=== PATIENT | female | born 1990 | race Caucasian/White ===

== ENCOUNTER 2024-08-12 17:39 | Inpatient (IN) ==
[2024-08-12] MEDS ORDERED: LIDOCAINE 1% LOCAL 20 ML VIAL INFIL PRN (22:20)
[2024-08-12] MEDS ORDERED: CALCIUM CARBONATE 500 MG CHEWABLE TAB PO PRN (22:20)
[2024-08-12] MEDS ORDERED: OXYTOCIN 30 UNITS/NSS 30 UNITS/500 ML BAG IV PRN (22:20)
--- NOTE | 2024-08-12 22:32 | History & Physical Report ---
Date of Service August 12, 2024 Assessment & Plan (1) Pre-eclampsia: (2) Dichorionic diamniotic twin gestation: (3) with 36 completed weeks gestation: Plan Plan for iol for planned vaginal delivery. Again went over in great detail how this would work--espinoza for ripening, once espinoza out epidural and arom, when ready to push to double set up or. Discussed potential of x 2 or of A and c/s delivery of B which is a potentially more of a risk given baby B is the bigger baby. If stat, FOB would not be allowed in the room. Discussed that we would not turn the baby and if flipped breech would be c/s. Discussed many potential senarios. Discussed gbs unknown as just done yesterday,so will treat now. Fetus category one x 2. Discussed that we are premature and that the babies will likely do well here (2 girls) but that there is a potential of need for transfer to NICU. If being not acceptible, would recommend delivery at tertiary care center. think the potential for that is small and we can care for alot there. They are agreeable to proceeding with NEMESIO. Espinoza placed without difficulty. Labs are all normal and she has no s/s of pet. Pressures have improved after rest and finished with discussion. Will continue to watch closely. Admission and Anticipated Discharge Date Admission Date: August 12, 2024 History of Present Illness Chief Complaint: iol. twins, pet Primary Care Provider: NO PCP Patient is a 34yof with di/di twins, discovered. Presents today for IOL secondary to twins with preeclampsia. We have been following her very closely since developing pet without severe features in early July. she has +3-4 proteinuria for several weeks and significant nonpitting edema to the mid abdomen. Testing for the twins has been very reassuring. Twice weekly lab testing has been wnl. She has not had any severe features. Pressures have mainly been in the 140-150s/80-90. Has not had severe range blood pressures Dr. Patrick discussed the case with M today and they recommend that we not wait until 37 weeks but delivery her now. Patient is very anxious about the whole process. INtial blood pressure is 166/100 but I suspect an anxiety component. Last us 08/11--Baby A is the smaller baby with AC 17/efw 30, baby B is larger baby with AC 50, EFW 69. both are cephalic yesterday. cervix was not favorable at my exam yesterday. Plan is to admit for espinoza/pitocin this evening for eventual daytime delivery of the twins. and Delivery Plans All Twins--> Di/Di twin *Baby ASA daily start 12-28wks until delivery *Anatomy scan @20wks *Serial growth US/S starting @24wks *Wkly NST's @32wks, twice wkly @36wks(nml growth) *Twice wkly NST's @32wks, ICSI or abnml growth *MD visits Q2wks @24wks & Qwk @32wks Preeclampsia, Gest HTN *Weekly BP chk's with Doc *Weekly CBC, LFTs *Growth US Q4wks *If IUGR: RAMIRO w/UAD's weekly *Deliver 37-38wks *(If Gestational HTN<28wks bring to OB) *Twice weekly NST's @Dx Baby B marginal cord insertion Increased Risk of SMA Carrier *FOB tested NEGATIVE OB Labs: Blood Type O Positive 02/11/24 Antibody Screen NEGATIVE 02/11/24 Hgb 10.3 g/dl (12.0-16.0) L 08/07/24 Hct 31.9 % (37.0-47.0) L 08/07/24 MCV 86.9 fL (80.0-100.0) 08/07/24 Plt Count 207 K/uL (130-400) 08/07/24 Rubella IgG Antibody Immune (Immune) 02/11/24 RPR Nonreactive (Nonreactive) 02/11/24 Treponema pallidum Ab Negative (Negative) 06/18/24 Hep Bs Antigen NON-REACTIVE (NON-REACTIVE) 02/11/24 Hepatitis C Ab (EIA) NON-REACTIVE (NON-REACTIVE) 02/11/24 HIV (1&2) Ag & Ab Conf NON-REACTIVE (NON-REACTIVE) 02/11/24 Glucose 1 Hr 50 gm 110 mg/dl (70-130) 06/18/24 OB Optional Labs: No Data to Display Labs Reviewed: low risk panorama x 2--akh carrier sma fob neg carrier sma declines afp--akh GBS pending--akh Allergies Allergy/AdvReac Type Severity Reaction Status Date / Time No Known Allergies Allergy Verified 08/11/24 11:28 Home Medications Medication Instructions Recorded Confirmed Type vits no.130-ferrous fum 1 tab PO DAILY 05/25/24 08/11/24 History 27 mg iron-folic acid 800 mcg tablet ( Vitamin) Patient History Medical History Patient denies significant medical history Surgical History Status post surgery Status post colposcopy Family History Father Diabetes Hypertension Hypercholesteremia Denies family history of Ovarian cancer Breast cancer Colorectal cancer Social History Smoking Status: Never smoker Second Hand Exposure: No; Do You Dip or Chew Tobacco: No; Hx Alcohol Use: No Hx Substance Use: No Preferred Language: Kazakh Manager Implementation Required: No Beliefs That Will Affect Care: None marital status: marital status details: Vesta (39) [phone] Current Living Situation: Spouse Current Living Situation Comment: lives with spouse, step child, no pets current occupational status: unemployed Other Information That Helps Us Care for You: No Feels Safe at Home: Yes Assistive Devices: None OB History g1--present INTERNAL RECRUITER History hx of abnl pap Physical Exam Constitutional: WD/WN, vitals as above Cardiovascular: Extremities: + pedal edema and + edema (+4, nonpitting); no calf tenderness Gastrointestinal (Abdomen): gravid, nonpitting edema of the abd wall to the umbilicus Neurologic: patellar DTR's 2+ bilat, sensation intact Psychiatric: A+Ox3, euthymic affect Genitourinary: cx--ft/80/-2 bedside us--baby A on the right, cephalic baby B on the left, cephalic toco--reina efm--black--140s with mod variability, accels to 160s, no decels blue--130s wtih mod variability, accels present, no decels Verbal consent for placement of espinoza bulb. cx visualized with speculum, espinoza threaded through, filled 30cc water, speculum removed. tolerated well Coding Level of Care Code None Diagnoses Pre-eclampsia O14.90 Dichorionic diamniotic twin in third trimester O30.043 Trimester: third trimester with 36 completed weeks gestation Z3A.36 (2) Dichorionic diamniotic twin gestation Trimester: third trimester Qualified Code(s): O30.043 - Twin , dichorionic/diamniotic, third trimester
[2024-08-12 22:54] LABS: Hematocrit (blood only) 32.1 % (37.0-47.0); Hemoglobin 10.5 g/dl (12.0-16.0); Mean Corpuscular Hemoglobin 28.3 pg (25.0-34.0); Mean Corpuscular Hgb Conc 32.7 g/dL (32.0-36.0); Mean Corpuscular Volume 86.5 fL (80.0-100.0); Mean Platelet Volume 12.1 fL (9.4-12.4); Platelet Count 224 K/uL (130-400); RDW Coefficient of Variation 14.8 % (11.5-14.5); RDW Standard Deviation 46.7 fL (36.4-46.3); Red Blood Count 3.71 M/uL (4.20-5.40); White Blood Count 6.12 K/ul (4.8-10.8)
[2024-08-12 23:16] LABS: Albumin Globulin Ratio 0.8 (0.9-2); Albumin Level 2.4 gm/dl (3.4-5.0); BUN Creatinine Ratio 15.4 (10-20); Bilirubin,Total 0.6 mg/dl (0.2-1.0); Calcium 8.2 mg/dl (8.6-10.3); Creatinine Clr Calc Pharmacy 93.9 ml/min; Globulin 3.2 gm/dl (2.5-4.0); Potassium 4.2 mmol/L (3.5-5.1); Total Protein 5.6 gm/dl (6.0-8.3)
[2024-08-12] MEDS: PENICILLIN GK 6 MU in SODIUM CHLORIDE 0.9% 250 ML IV STA (23:17)
[2024-08-12] MEDS: OXYTOCIN 30 UNITS/NSS 30 UNITS/500 ML BAG IV PRN (23:44)
[2024-08-12] MEDS: SODIUM CHLORIDE 0.9% 1,000 ML IV SCH (23:45)
[2024-08-13] MEDS: BUTORPHANOL TARTRATE 2 MG/ML VIAL IV ONE (00:38)
--- NOTE | 2024-08-13 01:36 | Communication Note ---
Date of Service: August 13, 2024 Patient requested iv meds for pain and received 1mg of stadol. She is resting/sleeping. babies show stadol effect. BPs improved mainly 140-150s/80-90. Most are not in the severe range. Will continue to monitor closely.
[2024-08-13] MEDS: PENICILLIN GK 3 MU in DEXTROSE 5% 100 ML IV PRN (03:18)
[2024-08-13] MEDS: BUTORPHANOL TARTRATE 2 MG/ML VIAL IV STA (05:14)
--- NOTE | 2024-08-13 08:00 | Labor Progress Brief Note ---
Date of Service August 13, 2024 Subjective Patient is feeling well. WAs able to sleep overnight. Lester fell out a little after 3am and was 4cm at that time. Assessment & Plan (1) with 36 completed weeks gestation: (2) Pre-eclampsia: Plan stable from pet standpoint, pressures have been good overnight when resting/sleeping. fetus category one x 2. Plan to get epidural now and then arom. Admission and Anticipated Discharge Date Admission Date: August 12, 2024 Physical Exam Physical Exam: cx--deferred toco--q2-4min, pit at 6 efm--a--125, mod variability, accels present, no decels b--120 wtih mod variability, accels present, no decels Results & Data Vital Signs (Past 12 Hours) Vital Signs Temp Pulse Resp BP 08/13/24 07:15 83 138/84 08/13/24 06:44 81 131/82 08/13/24 06:13 83 139/83 08/13/24 05:44 83 154/87 H 08/13/24 05:13 75 165/96 H 08/13/24 04:14 75 163/97 H 08/13/24 03:43 78 163/95 H 08/13/24 03:13 75 153/95 H 08/13/24 02:44 76 162/94 H 08/13/24 02:30 18 08/13/24 02:30 36.6 C 18 08/13/24 02:14 80 133/89 08/13/24 01:43 82 136/82 08/13/24 01:13 86 159/84 H 08/13/24 00:43 88 167/99 H 08/13/24 00:13 81 142/78 H 08/12/24 23:42 77 159/99 H 08/12/24 23:28 81 165/96 H 08/12/24 23:12 81 161/94 H 08/12/24 23:00 86 171/102 H 08/12/24 22:40 82 166/100 H 08/12/24 22:28 37.3 C 18 Coding Level of Care Code None Diagnoses with 36 completed weeks gestation Z3A.36 Pre-eclampsia O14.90
[2024-08-13] MEDS ORDERED: NALBUPHINE HCL INJ 10 MG/ML AMP IV PRN ×2 (08:01→23:37)
[2024-08-13] MEDS ORDERED: ROPIVACAINE 0.5% PF 5 MG/ML 20 ML VIAL EPI PRN (08:01)
[2024-08-13] MEDS ORDERED: NALOXONE HCL 1 MG in SODIUM CHLORIDE 0.9% 1,000 ML IV PRN ×2 (08:01→23:37)
[2024-08-13] MEDS ORDERED: diphenhydrAMINE 50 MG/ML VIAL IV PRN ×2 (08:01→23:37)
[2024-08-13] MEDS ORDERED: ePHEDrine sulfate 50 MG/ML AMP IV PRN ×2 (08:01→23:37)
[2024-08-13] MEDS ORDERED: NALOXONE HCL 0.4 MG/1 ML VIAL/CARP IV PRN ×2 (08:01→23:37)
[2024-08-13] MEDS ORDERED: LIDOCAINE 2% MPF LOCAL 5 ML VIAL EPI PRN (08:01)
[2024-08-13] MEDS ORDERED: fentaNYL citrate PF 100 MCG/2 ML VIAL EPI PRN (08:01)
--- NOTE | 2024-08-13 08:05 | Anesthesiology Consultation ---
Date of Service August 13, 2024 Assessment & Plan Chart Review Chart Review: Patient NOT seen in Pre Admission Testing and Acceptable Risk for Labor Epidural Consults Requested none ASA ASA2 Proposed Anesthesia Anesthesia Type: Labor Epidural Risk / Benefits Reviewed With: PT / POA / Parent / Guardian, Accepts Plan and Informed Consent Obtained History Height/Weight Height: 5 ft 8 in Weight: 99.337 kg Allergies Allergy/AdvReac Type Severity Reaction Status Date / Time No Known Allergies Allergy Verified 08/11/24 11:28 Medications Home Medications Medication Instructions Recorded Confirmed Last Taken vits no.130-ferrous fum 1 tab PO DAILY 05/25/24 08/13/24 08/12/24 09:00 27 mg iron-folic acid 800 mcg tablet ( Vitamin) Active Medications Generic Name Dose Route Start Last Admin Trade Name Freq PRN Reason Stop Dose Admin Penicillin G Potassium 3 mu/ 106 mls @ 100 mls/hr 08/13/24 01:20 08/13/24 07:23 Dextrose IV 08/23/24 01:19 100 mls/hr Q4H PRN Administration GBS(+) Until Delivery Oxytocin 30 units in 500 mls @ 6 mls/hr 08/12/24 22:23 08/13/24 07:01 Pitocin 30 Units/Nss IV 08/14/24 22:22 0.36 units/hr .Q24H PRN 6 mls/hr Labor Induction/Augmentation Titration Protocol 0.36 UNITS/HR Sodium Chloride 1,000 mls @ 50 mls/hr 08/12/24 23:45 08/13/24 07:39 Nss IV 08/13/24 23:44 999 mls/hr .Q20H KIT Infusion NPO Date Last Intake of Fluids: 08/13/24 Time Last Intake of Fluids: 07:15 Date Last Intake of Solids: 08/12/24 Time Last Intake of Solids: 21:30 Past Medical History Medical History Patient denies significant medical history Exercise / Class Metabolic Activity 1 > 8 Run/Swim/Ski/Tennis Past Family History Family History Father Diabetes Hypertension Hypercholesteremia Denies family history of Ovarian cancer Breast cancer Colorectal cancer Past Surgical History Surgical History Status post surgery Status post colposcopy Past Anesthesia History No Hx of Anesthesia Complications and No Family Hx of Anesthesia Complications History of PONV History of PONV and Hx of Motion Sickness Social History Smoking Status: Never smoker Do You Dip or Chew Tobacco: No Hx Alcohol Use: No Hx Substance Use: No Review of Systems ROS Unobtainable: All systems reviewed & are unremarkable except as noted in HPI & below Physical Exam Vital Signs Last Vital Signs Temp 36.6 C 08/13/24 02:30 Pulse 83 08/13/24 07:15 Resp 18 08/13/24 02:30 BP 138/84 08/13/24 07:15 ENMT Mouth: no TMJ abnormality Thyromental Distance: > or= 3.5 Finger Breadths Mallampati Class: II Neck normal visual inspection and trachea midline; neck extension not limited Respiratory normal respiratory effort Auscultation: lungs clear to auscultation bilaterally Cardiovascular Rate/Rhythm: regular rate and regular rhythm Heart Sounds: no murmur Musculoskeletal Spine: normal cervical ROM Extremities: full ROM of extremities Neurologic moves all extremities Psychiatric Orientation: alert and oriented x 3 Testing Laboratory Results 08/12/24 22:32 08/12/24 22:32 Blood Type O Positive 08/12/24 22:32 Antibody Screen NEGATIVE 08/12/24 22:32
[2024-08-13] MEDS: fentANYL 2 MCG/ML BUPIVacaine 0.125%-NSS 100ML BAG ONE (08:24)
[2024-08-13] MEDS: fentaNYL citrate PF 100 MCG/2 ML VIAL ONE (08:29)
[2024-08-13] MEDS: SODIUM CHLORIDE 0.9% PF INJ 10 ML VIAL ONE (08:29)
[2024-08-13] MEDS: LIDOCAINE 2%/EPINEPHRINE 1:200,000 20 ML PF ONE (08:29)
[2024-08-13] MEDS: BUPIVACAINE 0.25% PF 30 ML VIAL ONE (08:29)
[2024-08-13] MEDS: BUPIVACAINE 0.25% PF 30 ML VIAL EPI STA (09:04)
[2024-08-13] MEDS: LIDOCAINE 2%/EPINEPHRINE 1:200,000 20 ML PF EPI STA (09:04)
[2024-08-13] MEDS: SODIUM CHLORIDE 0.9% PF INJ 10 ML VIAL EPI STA (09:04)
[2024-08-13] MEDS: fentaNYL citrate PF 100 MCG/2 ML VIAL EPI STA (09:04)
--- NOTE | 2024-08-13 10:45 | Labor Progress Brief Note ---
Date of Service August 13, 2024 Subjective FHT Cat 1 x both babies [place] q 2-4 Comfortable with epidural. AROM clear fluid. FSE to Baby A Assessment & Plan Admission and Anticipated Discharge Date Admission Date: August 12, 2024 Results & Data Vital Signs (Past 12 Hours) Vital Signs Temp Pulse Resp BP Pulse Ox 08/13/24 10:38 75 98 08/13/24 10:33 74 98 08/13/24 10:29 73 143/85 H 08/13/24 10:28 77 99 08/13/24 10:23 76 99 08/13/24 10:18 79 99 08/13/24 10:13 99 08/13/24 10:13 71 08/13/24 10:13 83 128/85 08/13/24 10:08 99 08/13/24 10:08 77 08/13/24 10:08 77 121/81 08/13/24 10:03 88 126/84 99 08/13/24 10:00 16 08/13/24 10:00 16 08/13/24 09:59 96 H 126/87 08/13/24 09:58 97 H 99 08/13/24 09:54 89 133/80 08/13/24 09:53 36.5 C 89 98 08/13/24 09:48 97 08/13/24 09:48 90 08/13/24 09:48 84 135/80 08/13/24 09:45 17 08/13/24 09:45 17 08/13/24 09:43 99 08/13/24 09:43 79 08/13/24 09:43 73 125/73 08/13/24 09:39 83 129/80 08/13/24 09:38 82 98 08/13/24 09:33 85 126/77 97 08/13/24 09:30 16 08/13/24 09:30 16 08/13/24 09:28 82 128/73 97 08/13/24 09:23 97 08/13/24 09:23 81 08/13/24 09:23 84 111/75 08/13/24 09:19 88 130/79 08/13/24 09:18 86 98 08/13/24 09:15 20 08/13/24 09:13 81 114/75 97 08/13/24 09:08 81 132/70 96 08/13/24 09:03 96 08/13/24 09:03 89 08/13/24 09:03 90 112/68 08/13/24 09:00 18 08/13/24 08:58 90 117/71 96 08/13/24 08:54 96 H 123/67 08/13/24 08:53 97 H 96 08/13/24 08:49 93 H 123/70 08/13/24 08:48 96 H 97 08/13/24 08:45 20 08/13/24 08:43 96 08/13/24 08:43 92 H 08/13/24 08:43 96 H 128/71 08/13/24 08:39 93 H 133/73 08/13/24 08:38 95 H 98 08/13/24 08:33 99 H 98 08/13/24 08:31 102 H 130/76 08/13/24 08:30 18 08/13/24 08:29 100 H 144/79 H 08/13/24 08:28 99 H 97 08/13/24 08:27 99 H 142/85 H 08/13/24 08:25 96 H 158/85 H 08/13/24 08:23 92 H 168/93 H 99 08/13/24 08:21 98 H 159/75 H 08/13/24 08:18 88 99 08/13/24 08:13 81 182/99 H 08/13/24 07:15 83 138/84 08/13/24 06:44 81 131/82 08/13/24 06:13 83 139/83 08/13/24 05:44 83 154/87 H 08/13/24 05:13 75 165/96 H 08/13/24 04:14 75 163/97 H 08/13/24 03:43 78 163/95 H 08/13/24 03:13 75 153/95 H 08/13/24 02:44 76 162/94 H 08/13/24 02:30 18 08/13/24 02:30 36.6 C 18 08/13/24 02:14 80 133/89 08/13/24 01:43 82 136/82 08/13/24 01:13 86 159/84 H 08/13/24 00:43 88 167/99 H 08/13/24 00:13 81 142/78 H 08/12/24 23:42 77 159/99 H 08/12/24 23:28 81 165/96 H 08/12/24 23:12 81 161/94 H 08/12/24 23:00 86 171/102 H Coding Level of Care Code None
[2024-08-13] MEDS: fentANYL 2 MCG/ML BUPIVacaine 0.125%-NSS 100ML BAG EPI PRN (16:01)
[2024-08-13] MEDS: BUPIVACAINE 0.25% PF 30 ML VIAL EPI PRN (16:31)
[2024-08-13] MEDS: SODIUM CHLORIDE 0.9% PF INJ 10 ML VIAL EPI PRN (16:31)
--- NOTE | 2024-08-13 16:34 | Anesthesia Procedure Note ---
Date of Service August 13, 2024 Anesthesia Epidural Re-Dose Vital Signs Temp Pulse Resp BP Pulse Ox 36.9 C 91 H 16 157/89 H 100 08/13/24 15:06 08/13/24 16:29 08/13/24 14:30 08/13/24 16:29 08/13/24 16:28 Notes Pain Intensity: 8 Dilatation (cm): 5.5 Effacement (%): 90 Called by nursing to evaluate epidural as the patient is having increased pain. The epidural was re-dosed with the following medications (all medications via epidural route) after negative aspiration of the epidural catheter for CSF/HEME. 0.2 Ropivacaine ml via epidural After Epidural Re-Dose Mental Status: alert / awake / arousable and participated in evaluation Pain: improving with treatment Airway Patency, RR, SpO2: stable & adequate BP & HR: stable & adequate Additional Notes: asked to evaluate patient for pain. Patient states she can feel everything and has pain in sacral region. Patient appeared comfoertable and talked fluidly through peak of mutiple contractions while I was in room. T10 level bilaterally to ice. Redosed epidural with 8 cc of 0.125% bupi and discussed expectations for pain management during labor.
[2024-08-13] MEDS: ePHEDrine sulfate 50 MG/ML AMP ONE (19:02)
[2024-08-13] MEDS ORDERED: LIDOCAINE 2%/EPINEPHRINE 1:200,000 20 ML PF ONE (22:32)
--- NOTE | 2024-08-13 22:32 | History & Physical Bridge Note ---
Date of Service August 13, 2024 History & Physical Bridge Note I have examined the patient, reviewed the History & Physical and in the interval since the performance of the History & Physical I have noted the following changes of clinical significance: no changes noted
--- NOTE | 2024-08-13 22:32 | Labor Progress Brief Note ---
Date of Service August 13, 2024 Subjective Cervix exam at 930p was 6cm, discussed concerns about failure to dilate with patient - as she was 4cm at 5a today, and no mold insert changer 3 hours. She requested recheck in 1 hour in hopes for cervical change. Recheck just now was same cervical exam, discussed 4+ hours of ctx Q 1-2 min, no cervical change. Recommend proceed to delivery by section. She is agreeable. We have already discussed consent for . Assessment & Plan Admission and Anticipated Discharge Date Admission Date: August 12, 2024 Results & Data Vital Signs (Past 12 Hours) Vital Signs Temp Pulse Resp BP Pulse Ox 08/13/24 22:28 100 H 100 08/13/24 22:23 100 H 100 08/13/24 22:18 99 H 100 08/13/24 22:14 93 H 170/95 H 08/13/24 22:13 96 H 100 08/13/24 22:08 104 H 100 08/13/24 22:03 118 H 96 08/13/24 21:59 93 H 153/86 H 08/13/24 21:58 89 98 08/13/24 21:53 93 H 97 08/13/24 21:48 93 H 99 08/13/24 21:44 100 H 160/92 H 08/13/24 21:43 100 H 99 08/13/24 21:38 100 H 100 08/13/24 21:33 98 H 100 08/13/24 21:30 106 H 156/116 H 08/13/24 21:28 104 H 99 08/13/24 21:23 91 H 99 08/13/24 21:18 102 H 98 08/13/24 21:13 100 08/13/24 21:13 103 H 08/13/24 21:13 91 H 141/85 H 08/13/24 21:08 94 H 100 08/13/24 21:03 97 H 100 08/13/24 20:58 93 H 156/99 H 100 08/13/24 20:53 96 H 100 08/13/24 20:48 99 H 100 08/13/24 20:44 88 146/88 H 08/13/24 20:43 99 H 100 08/13/24 20:38 97 H 100 08/13/24 20:33 97 H 99 08/13/24 20:29 96 H 152/86 H 08/13/24 20:28 97 H 100 08/13/24 20:23 99 H 99 08/13/24 20:18 94 H 98 08/13/24 20:13 96 H 08/13/24 20:13 98 H 174/101 H 97 08/13/24 20:08 88 97 08/13/24 20:03 87 97 08/13/24 19:59 92 H 172/102 H 08/13/24 19:58 88 97 08/13/24 19:53 88 97 08/13/24 19:48 87 97 08/13/24 19:45 90 158/102 H 08/13/24 19:43 87 98 08/13/24 19:38 90 98 08/13/24 19:33 86 98 08/13/24 19:28 98 08/13/24 19:28 85 08/13/24 19:28 90 167/96 H 08/13/24 19:23 86 98 08/13/24 19:18 85 99 08/13/24 19:15 85 165/98 H 08/13/24 19:13 89 99 08/13/24 19:10 37.0 C 18 08/13/24 19:10 18 08/13/24 19:08 91 H 99 08/13/24 19:03 88 100 08/13/24 19:00 20 08/13/24 19:00 20 08/13/24 18:59 93 H 162/98 H 08/13/24 18:58 93 H 100 08/13/24 18:53 94 H 100 08/13/24 18:48 93 H 99 08/13/24 18:46 36.7 C 08/13/24 18:44 90 154/94 H 08/13/24 18:43 92 H 100 08/13/24 18:38 95 H 99 08/13/24 18:33 93 H 99 08/13/24 18:30 20 08/13/24 18:30 20 08/13/24 18:28 100 08/13/24 18:28 90 08/13/24 18:28 88 152/99 H 08/13/24 18:23 95 H 99 08/13/24 18:18 93 H 98 08/13/24 18:13 98 H 99 08/13/24 18:08 92 H 100 08/13/24 18:04 16 08/13/24 18:04 16 08/13/24 18:03 97 H 99 08/13/24 17:58 86 165/89 H 98 08/13/24 17:53 93 H 99 08/13/24 17:48 91 H 99 08/13/24 17:44 87 155/86 H 08/13/24 17:43 85 98 08/13/24 17:38 91 H 99 08/13/24 17:33 93 H 99 08/13/24 17:28 90 08/13/24 17:28 90 154/86 H 100 08/13/24 17:23 96 H 100 08/13/24 17:18 85 100 08/13/24 17:14 88 142/89 H 08/13/24 17:13 88 99 08/13/24 17:08 100 H 100 08/13/24 17:06 37.0 C 08/13/24 17:05 16 08/13/24 17:05 16 08/13/24 17:03 99 H 99 08/13/24 17:00 89 148/90 H 08/13/24 16:58 92 H 99 08/13/24 16:53 97 H 99 08/13/24 16:48 86 99 08/13/24 16:43 98 08/13/24 16:43 84 08/13/24 16:43 85 148/92 H 08/13/24 16:38 83 98 08/13/24 16:33 92 H 99 08/13/24 16:32 90 149/93 H 08/13/24 16:30 20 08/13/24 16:29 91 H 157/89 H 08/13/24 16:28 90 100 08/13/24 16:23 96 H 100 08/13/24 16:18 96 H 100 08/13/24 16:13 100 08/13/24 16:13 92 H 08/13/24 16:13 90 133/84 08/13/24 16:08 89 99 08/13/24 16:03 94 H 99 08/13/24 16:00 16 08/13/24 15:59 89 136/83 08/13/24 15:58 92 H 98 08/13/24 15:53 95 H 100 08/13/24 15:48 89 100 12/05/24 15:43 92 H 126/77 100 08/13/24 15:38 95 H 100 08/13/24 15:33 96 H 100 08/13/24 15:30 20 08/13/24 15:30 88 144/83 H 08/13/24 15:28 93 H 99 08/13/24 15:23 91 H 100 08/13/24 15:18 90 100 08/13/24 15:14 90 141/92 H 08/13/24 15:13 91 H 100 08/13/24 15:08 90 99 08/13/24 15:06 36.9 C 08/13/24 15:03 89 99 08/13/24 15:00 16 08/13/24 15:00 92 H 143/92 H 08/13/24 14:58 92 H 100 08/13/24 14:53 88 100 08/13/24 14:48 90 100 08/13/24 14:44 90 150/90 H 08/13/24 14:43 89 100 08/13/24 14:38 90 100 08/13/24 14:33 92 H 99 08/13/24 14:30 86 16 159/92 H 08/13/24 14:28 86 143/93 H 98 08/13/24 14:23 81 99 08/13/24 14:18 83 99 08/13/24 14:14 83 145/90 H 08/13/24 14:13 82 99 08/13/24 14:08 83 99 08/13/24 14:03 88 98 08/13/24 14:00 83 160/89 H 08/13/24 13:58 86 98 08/13/24 13:53 78 99 08/13/24 13:48 83 98 08/13/24 13:44 86 144/89 H 08/13/24 13:43 86 98 08/13/24 13:38 81 99 08/13/24 13:33 82 99 08/13/24 13:30 16 08/13/24 13:28 80 163/98 H 99 08/13/24 13:23 77 100 08/13/24 13:18 75 100 08/13/24 13:14 86 155/91 H 08/13/24 13:13 80 100 08/13/24 13:08 80 99 08/13/24 13:03 86 98 08/13/24 13:01 37.1 C 08/13/24 13:00 20 08/13/24 13:00 78 165/90 H 08/13/24 12:58 74 99 08/13/24 12:53 74 99 08/13/24 12:48 74 99 08/13/24 12:44 77 164/94 H 08/13/24 12:43 79 99 08/13/24 12:38 82 100 08/13/24 12:33 81 100 08/13/24 12:30 16 08/13/24 12:29 85 140/95 08/13/24 12:28 88 100 08/13/24 12:23 75 100 08/13/24 12:18 82 99 08/13/24 12:15 81 152/84 H 08/13/24 12:13 72 99 08/13/24 12:08 77 99 08/13/24 12:03 71 99 08/13/24 12:00 18 08/13/24 12:00 74 163/93 H 08/13/24 11:58 79 99 08/13/24 11:53 83 98 08/13/24 11:48 85 100 08/13/24 11:44 70 153/94 H 08/13/24 11:43 73 98 08/13/24 11:38 69 98 08/13/24 11:33 70 98 08/13/24 11:30 16 08/13/24 11:30 16 08/13/24 11:28 69 139/93 98 08/13/24 11:23 71 98 08/13/24 11:18 72 98 08/13/24 11:14 76 139/87 08/13/24 11:13 78 99 08/13/24 11:08 71 98 08/13/24 11:03 78 17 99 08/13/24 10:59 77 142/83 H 08/13/24 10:58 76 98 08/13/24 10:53 70 98 08/13/24 10:48 74 98 08/13/24 10:43 71 146/85 H 98 08/13/24 10:38 75 98 08/13/24 10:33 74 98 Coding Level of Care Code None
[2024-08-13] MEDS ORDERED: ONDANSETRON INJ 2 MG/ML 2 ML VIAL ONE (22:33)
[2024-08-13] MEDS ORDERED: MoRPHine SULFATE PF 1 MG/ML 10 ML AMP/VIAL ONE (22:33)
[2024-08-13] MEDS ORDERED: PHENYLEPHRINE 100MCG/ML 5ML SYR ONE (22:33)
[2024-08-13] MEDS ORDERED: DEXAMETHASONE SOD INJ 4 MG/ML VIAL ONE (22:33)
[2024-08-13] MEDS ORDERED: OXYTOCIN 10 UNITS/ML VIAL ONE (22:35)
[2024-08-13] MEDS: ONDANSETRON INJ 2 MG/ML 2 ML VIAL IV PRN (22:40)
[2024-08-13] MEDS: CITRIC ACID/SODIUM CITRATE 15 ML UDC PO SCH (22:45)
[2024-08-13] MEDS: AZITHROMYCIN 250 MG TAB PO STA (22:46)
[2024-08-13] MEDS: ceFAZolin 3000MG 3,000 MG/72.5 ML BAG IV SCH (22:48)
[2024-08-13] MEDS ORDERED: ePHEDrine sulfate 50 MG/5 ML SYR ONE (23:09)
--- NOTE | 2024-08-13 23:09 | Communication Note ---
Date of Service: August 13, 2024 decision made to proceed to c/s for failure to progress in twin gestation with PreE. Epidural in place and working well. Fabien proceed with epidural anetheia. ASA2E
[2024-08-13] MEDS ORDERED: fentaNYL citrate PF 100 MCG/2 ML VIAL ONE (23:24)
[2024-08-13] MEDS ORDERED: diphenhydrAMINE Capsule 25 MG CAP PO PRN (23:37)
[2024-08-13] MEDS ORDERED: DROPERIDOL 5 MG/2 ML VIAL IV PRN (23:37)
[2024-08-13] MEDS ORDERED: NALOXONE HCL 0.08 MG in SYRINGE 1.8 ML IV PRN (23:37)
[2024-08-13] MEDS ORDERED: PROMETHAZINE 6.25 MG/50.25 ML BAG IV PRN (23:37)
[2024-08-13] MEDS ORDERED: ONDANSETRON INJ 2 MG/ML 2 ML VIAL IV PRN (23:37)
[2024-08-13] MEDS ORDERED: HYDROmorphone INJ 0.5 MG/0.5 ML SYR IV PRN (23:37)
--- NOTE | 2024-08-13 23:39 | Anesthesia Procedure Note ---
Date of Service August 13, 2024 Anesthesia Post Epidural Note Vital Signs Vital Signs: Temp Pulse Resp BP Pulse Ox 37.0 C 103 H 18 142/86 H 99 08/13/24 19:10 08/13/24 22:48 08/13/24 19:10 08/13/24 22:43 08/13/24 22:48 Pain Intensity Abdomen: Pain Intensity: 9 Notes Mental Status: alert / awake / arousable and participated in evaluation Nausea / Vomiting: adequately controlled Pain: adequately controlled Airway Patency, RR, SpO2: stable & adequate BP & HR: stable & adequate Hydration State: stable & adequate Neuraxial Anesthesia: was administered and sensory block is resolving Anesthetic Complications: no major complications apparent Epidural: Removed without complications and With tip intact
[2024-08-13] MEDS ORDERED: DC INTRASPINAL MORPHINE SCH (23:45)
[2024-08-13] MEDS ORDERED: NO NARCOTICS OR SEDATIVES SCH (23:45)
[2024-08-14] MEDS ORDERED: SENNA 8.6 MG TAB PO PRN (00:05)
[2024-08-14] MEDS ORDERED: BENZOCAINE 20% SPRY 85 APPLN/85 GM CAN EXT PRN (00:05)
[2024-08-14] MEDS ORDERED: HYDROCORTISONE ACETATE 25 MG SUPP PR PRN (00:05)
[2024-08-14] MEDS ORDERED: CALCIUM CARBONATE 500 MG CHEWABLE TAB PO PRN (00:05)
--- NOTE | 2024-08-14 00:05 | Operative Report ---
Post Operative Report Pre & Post Diagnosis Operation Date: 08/13/24 23:00 Pre: 36w di/di twins, preeclampsia, failure to dilate Post: same I identified the patient and participated in the time-out.: Yes Procedure Operation Date: 08/13/24 23:00 Primary Low Transverse Section Surgeon Lani Patrick DO Breakfast Hostess Maryellen Pate MD Quantitative Blood Loss (QBL) 1031 Findings Consistent with Post-Op Diagnosis Viable female neonates, Apgars Baby A 8/9, Baby B /. Weight pending, please see nursery records. Specimens placentas, cord blood, cord gas Drains espinoza, clear yellow Anesthesia Type L&D Only Epidural Exists Complications none Disposition Accompanied Patient To Recovery: Yes Disposition: L&D Indications 34yo with di di twins undergoing induction of labor for preeclampsia, dilated to 6cm and in spite of regular contractions was unable to progress further. Description of Procedure The patient was seen in her labor and delivery room, risks benefits and alternatives to surgery were reviewed. Informed consent obtained. Questions were answered. She was taken to the operating room, epidural anesthesia was re-dosed. She was then prepared and draped in the usual sterile fashion in the supine position with a leftward tilt. Timeout was confirmed. A Pfannenstiel skin incision was made with a scalpel, and carried through to the underlying layer of fascia. Fascia was nicked at midline, and this incision was extended bilaterally. The superior aspect of the fascial incision was grasped with Naomi clamps x2, elevated off the underlying rectus abdominis muscles, and dissected sharply and bluntly. In similar fashion, the inferior aspect of the fascial incision was dissected. The rectus abdominis muscles were , and the peritoneum was entered bluntly digitally. This was extended bilaterally. The bladder flap was taken down carefully using Metzenbaum scissors. Using a new scalpel, a low transverse uterine incision was created. Clear amniotic fluid noted. The Baby A was delivered from a cephalic presentation. The head delivered, followed by shoulders and body. Spontaneous cry on the field. The cord was doubly clamped and cut, and the was handed off to the waiting elementary school principal. A segment was retained for cord gases. Cord blood was obtained. Baby B amniotomy performed, clear fluid. Baby B was delivered from a cephalic presentation. The head delivered, followed by shoulders and body. Spontaneous cry on the field. The cord was doubly clamped and cut, and the infant was handed off to the waiting elementary school principal. A segment was retained for cord gases. Cord blood was obtained. The placentas were delivered spontaneously intact. The uterus was exteriorized, and cleared of all clots and debris. The hysterotomy incision was reapproximated using 0 Vicryl in a running locked stitch. A second layer of the same suture was used to imbricate the incision. Posterior uterus was evaluated and normal. The uterus was returned to the abdomen, and gutters were cleared of clots and debris. Excellent hemostasis was observed. The fascial incision was reapproximated using 0 Vicryl in a running stitch. The subcutaneous tissue was irrigated, and reapproximated using 2-0 plain gut in a running stitch. The skin was reapproximated using 4-0 Vicryl in a running s ubcuticular stitch. A Alexander dressing was applied to the incision site. The patient tolerated the procedure well, and will be taken to the recovery area in stable and good condition. I attest to the content of the Intraoperative Record and any orders documented therein. Any exceptions are noted below. OB Procedure Charges 52646
--- NOTE | 2024-08-14 00:36 | Anesthesiology Progress Note ---
Date of Service August 14, 2024 Anesthesia Post Procedure Vital Signs Vital Signs: Temp Pulse Resp BP Pulse Ox 08/14/24 00:34 107 H 100 08/14/24 00:29 106 H 142/85 H 100 08/14/24 00:24 108 H 99 08/14/24 00:20 102 H 134/77 08/14/24 00:19 102 H 96 08/14/24 00:14 96 H 99 08/14/24 00:09 104 H 139/76 99 08/14/24 00:04 105 H 98 08/13/24 23:59 110 H 123/70 99 08/13/24 22:48 103 H 99 08/13/24 22:43 92 H 142/86 H 99 08/13/24 22:38 96 H 99 08/13/24 22:33 99 H 100 08/13/24 22:29 103 H 145/92 H 08/13/24 22:28 100 H 100 08/13/24 22:23 100 H 100 08/13/24 22:18 99 H 100 08/13/24 22:14 93 H 170/95 H 08/13/24 22:13 96 H 100 08/13/24 22:08 104 H 100 08/13/24 22:03 118 H 96 08/13/24 21:59 93 H 153/86 H 08/13/24 21:58 89 98 08/13/24 21:53 93 H 97 08/13/24 21:48 93 H 99 08/13/24 21:44 100 H 160/92 H 08/13/24 21:43 100 H 99 08/13/24 21:38 100 H 100 08/13/24 21:33 98 H 100 08/13/24 21:30 106 H 156/116 H 08/13/24 21:28 104 H 99 08/13/24 21:23 91 H 99 08/13/24 21:18 102 H 98 08/13/24 21:13 100 08/13/24 21:13 103 H 08/13/24 21:13 91 H 141/85 H 08/13/24 21:08 94 H 100 08/13/24 21:03 97 H 100 08/13/24 20:58 93 H 156/99 H 100 08/13/24 20:53 96 H 100 08/13/24 20:48 99 H 100 08/13/24 20:44 88 146/88 H 08/13/24 20:43 99 H 100 08/13/24 20:38 97 H 100 08/13/24 20:33 97 H 99 08/13/24 20:29 96 H 152/86 H 08/13/24 20:28 97 H 100 08/13/24 20:23 99 H 99 08/13/24 20:18 94 H 98 08/13/24 20:13 96 H 08/13/24 20:13 98 H 174/101 H 97 08/13/24 20:08 88 97 08/13/24 20:03 87 97 08/13/24 19:59 92 H 172/102 H 08/13/24 19:58 88 97 08/13/24 19:53 88 97 08/13/24 19:48 87 97 08/13/24 19:45 90 158/102 H 08/13/24 19:43 87 98 08/13/24 19:38 90 98 08/13/24 19:33 86 98 08/13/24 19:28 98 08/13/24 19:28 85 08/13/24 19:28 90 167/96 H 08/13/24 19:23 86 98 08/13/24 19:18 85 99 08/13/24 19:15 85 165/98 H 08/13/24 19:13 89 99 08/13/24 19:10 37.0 C 18 08/13/24 19:10 18 08/13/24 19:08 91 H 99 08/13/24 19:03 88 100 08/13/24 19:00 20 08/13/24 19:00 20 08/13/24 18:59 93 H 162/98 H 08/13/24 18:58 93 H 100 08/13/24 18:53 94 H 100 08/13/24 18:48 93 H 99 08/13/24 18:46 36.7 C 08/13/24 18:44 90 154/94 H 08/13/24 18:43 92 H 100 08/13/24 18:38 95 H 99 08/13/24 18:33 93 H 99 08/13/24 18:30 20 08/13/24 18:30 20 08/13/24 18:28 100 08/13/24 18:28 90 12/05/24 18:28 88 152/99 H 08/13/24 18:23 95 H 99 08/13/24 18:18 93 H 98 08/13/24 18:13 98 H 99 08/13/24 18:08 92 H 100 08/13/24 18:04 16 08/13/24 18:04 16 08/13/24 18:03 97 H 99 08/13/24 17:58 86 165/89 H 98 08/13/24 17:53 93 H 99 08/13/24 17:48 91 H 99 08/13/24 17:44 87 155/86 H 08/13/24 17:43 85 98 08/13/24 17:38 91 H 99 08/13/24 17:33 93 H 99 08/13/24 17:28 90 08/13/24 17:28 90 154/86 H 100 08/13/24 17:23 96 H 100 08/13/24 17:18 85 100 08/13/24 17:14 88 142/89 H 08/13/24 17:13 88 99 08/13/24 17:08 100 H 100 08/13/24 17:06 37.0 C 08/13/24 17:05 16 08/13/24 17:05 16 08/13/24 17:03 99 H 99 08/13/24 17:00 89 148/90 H 08/13/24 16:58 92 H 99 08/13/24 16:53 97 H 99 08/13/24 16:48 86 99 08/13/24 16:43 98 08/13/24 16:43 84 08/13/24 16:43 85 148/92 H 08/13/24 16:38 83 98 08/13/24 16:33 92 H 99 08/13/24 16:32 90 149/93 H 08/13/24 16:30 20 08/13/24 16:29 91 H 157/89 H 08/13/24 16:28 90 100 08/13/24 16:23 96 H 100 08/13/24 16:18 96 H 100 08/13/24 16:13 100 08/13/24 16:13 92 H 08/13/24 16:13 90 133/84 08/13/24 16:08 89 99 08/13/24 16:03 94 H 99 08/13/24 16:00 16 08/13/24 15:59 89 136/83 08/13/24 15:58 92 H 98 08/13/24 15:53 95 H 100 08/13/24 15:48 89 100 08/13/24 15:43 92 H 126/77 100 08/13/24 15:38 95 H 100 08/13/24 15:33 96 H 100 08/13/24 15:30 20 08/13/24 15:30 88 144/83 H 08/13/24 15:28 93 H 99 08/13/24 15:23 91 H 100 08/13/24 15:18 90 100 08/13/24 15:14 90 141/92 H 08/13/24 15:13 91 H 100 08/13/24 15:08 90 99 08/13/24 15:06 36.9 C 08/13/24 15:03 89 99 08/13/24 15:00 16 08/13/24 15:00 92 H 143/92 H 08/13/24 14:58 92 H 100 08/13/24 14:53 88 100 08/13/24 14:48 90 100 08/13/24 14:44 90 150/90 H 08/13/24 14:43 89 100 08/13/24 14:38 90 100 08/13/24 14:33 92 H 99 08/13/24 14:30 86 16 159/92 H 08/13/24 14:28 86 143/93 H 98 08/13/24 14:23 81 99 08/13/24 14:18 83 99 08/13/24 14:14 83 145/90 H 08/13/24 14:13 82 99 08/13/24 14:08 83 99 08/13/24 14:03 88 98 08/13/24 14:00 83 160/89 H 08/13/24 13:58 86 98 08/13/24 13:53 78 99 08/13/24 13:48 83 98 08/13/24 13:44 86 144/89 H 08/13/24 13:43 86 98 08/13/24 13:38 81 99 08/13/24 13:33 82 99 08/13/24 13:30 16 08/13/24 13:28 80 163/98 H 99 12/05/24 13:23 77 100 08/13/24 13:18 75 100 08/13/24 13:14 86 155/91 H 08/13/24 13:13 80 100 08/13/24 13:08 80 99 08/13/24 13:03 86 98 08/13/24 13:01 37.1 C 08/13/24 13:00 20 08/13/24 13:00 78 165/90 H 08/13/24 12:58 74 99 08/13/24 12:53 74 99 08/13/24 12:48 74 99 08/13/24 12:44 77 164/94 H 08/13/24 12:43 79 99 08/13/24 12:38 82 100 08/13/24 12:33 81 100 08/13/24 12:30 16 08/13/24 12:29 85 140/95 08/13/24 12:28 88 100 08/13/24 12:23 75 100 08/13/24 12:18 82 99 08/13/24 12:15 81 152/84 H 08/13/24 12:13 72 99 08/13/24 12:08 77 99 08/13/24 12:03 71 99 08/13/24 12:00 18 08/13/24 12:00 74 163/93 H 08/13/24 11:58 79 99 08/13/24 11:53 83 98 08/13/24 11:48 85 100 08/13/24 11:44 70 153/94 H 08/13/24 11:43 73 98 08/13/24 11:38 69 98 08/13/24 11:33 70 98 08/13/24 11:30 16 08/13/24 11:30 16 08/13/24 11:28 69 139/93 98 08/13/24 11:23 71 98 08/13/24 11:18 72 98 08/13/24 11:14 76 139/87 08/13/24 11:13 78 99 08/13/24 11:08 71 98 08/13/24 11:03 78 17 99 08/13/24 10:59 77 142/83 H 08/13/24 10:58 76 98 08/13/24 10:53 70 98 08/13/24 10:48 74 98 08/13/24 10:43 71 146/85 H 98 08/13/24 10:38 75 98 08/13/24 10:33 74 98 08/13/24 10:29 73 143/85 H 08/13/24 10:28 77 99 08/13/24 10:23 76 99 08/13/24 10:18 79 99 08/13/24 10:13 99 08/13/24 10:13 71 08/13/24 10:13 83 128/85 08/13/24 10:08 99 08/13/24 10:08 77 08/13/24 10:08 77 121/81 08/13/24 10:03 88 126/84 99 08/13/24 10:00 16 08/13/24 10:00 16 08/13/24 09:59 96 H 126/87 08/13/24 09:58 97 H 99 08/13/24 09:54 89 133/80 08/13/24 09:53 36.5 C 89 98 08/13/24 09:48 97 08/13/24 09:48 90 08/13/24 09:48 84 135/80 08/13/24 09:45 17 08/13/24 09:45 17 08/13/24 09:43 99 08/13/24 09:43 79 08/13/24 09:43 73 125/73 08/13/24 09:39 83 129/80 08/13/24 09:38 82 98 08/13/24 09:33 85 126/77 97 08/13/24 09:30 16 08/13/24 09:30 16 08/13/24 09:28 82 128/73 97 08/13/24 09:23 97 08/13/24 09:23 81 08/13/24 09:23 84 111/75 08/13/24 09:19 88 130/79 08/13/24 09:18 86 98 08/13/24 09:15 20 08/13/24 09:13 81 114/75 97 08/13/24 09:08 81 132/70 96 08/13/24 09:03 96 08/13/24 09:03 89 08/13/24 09:03 90 112/68 08/13/24 09:00 18 08/13/24 08:58 90 117/71 96 08/13/24 08:54 96 H 123/67 08/13/24 08:53 97 H 96 08/13/24 08:49 93 H 123/70 08/13/24 08:48 96 H 97 08/13/24 08:45 20 08/13/24 08:43 96 08/13/24 08:43 92 H 08/13/24 08:43 96 H 128/71 08/13/24 08:39 93 H 133/73 08/13/24 08:38 95 H 98 08/13/24 08:33 99 H 98 08/13/24 08:31 102 H 130/76 08/13/24 08:30 18 08/13/24 08:29 100 H 144/79 H 08/13/24 08:28 99 H 97 08/13/24 08:27 99 H 142/85 H 08/13/24 08:25 96 H 158/85 H 08/13/24 08:23 92 H 168/93 H 99 08/13/24 08:21 98 H 159/75 H 08/13/24 08:18 88 99 08/13/24 08:13 81 182/99 H 08/13/24 07:15 83 138/84 08/13/24 06:44 81 131/82 08/13/24 06:13 83 139/83 08/13/24 05:44 83 154/87 H 08/13/24 05:13 75 165/96 H 08/13/24 04:14 75 163/97 H 08/13/24 03:43 78 163/95 H 08/13/24 03:13 75 153/95 H 08/13/24 02:44 76 162/94 H 08/13/24 02:30 18 08/13/24 02:30 36.6 C 18 08/13/24 02:14 80 133/89 08/13/24 01:43 82 136/82 08/13/24 01:13 86 159/84 H 08/13/24 00:43 88 167/99 H Pain Intensity Abdomen: Pain Intensity: 9 Transfer of Care Handoff Completed per policy Notes Mental Status: alert / awake / arousable Patient Amnestic to Procedure: Yes Nausea / Vomiting: adequately controlled Pain: adequately controlled Airway Patency, RR, SpO2: stable & adequate BP & HR: stable & adequate Hydration State: stable & adequate Neuraxial Anesthesia: was administered and sensory block is resolving Anesthetic Complications: no major complications apparent and Pt Satisfied with anesthetic care
[2024-08-14] MEDS: ACETAMINOPHEN 325 MG TAB PO SCH (00:37)
[2024-08-14] MEDS: KETOROLAC 30 MG/ML VIAL IV SCH (00:38)
[2024-08-14 00:51] LABS: Base Excess Cord Venous Blood -5.1 mEq/L (-7.7-1.9); Cord Venous Blood HCO3 21 mmol/L (18.4-26.8); Cord Venous Blood PCO2 43 mmHg (30.4-57.2); Cord Venous Blood PO2 23 mmHg (14.1-43.3); O2 Saturation Cord Venous Bld < 60.0 % (<68)
[2024-08-14 00:52] LABS: Base Excess Cord Arterial Bld -5.2 mEq/L (-9-1.8); CO2 Cord Arterial Blood 53 mmHg (39.1-73.5); HCO3 Cord Arterial Blood 23 mmol/L (19.7-28.5); Oxygen Sat Cord Arterial Blood < 60.0 % (<60); PO2 Cord Arterial Blood < 20 mmHg (4.1-31.7); pH Cord Arterial Blood 7.24 (7.1-7.38)
[2024-08-14 00:53] LABS: Base Excess Cord Arterial Bld -5.2 mEq/L (-9-1.8); Base Excess Cord Venous Blood -5.5 mEq/L (-7.7-1.9); CO2 Cord Arterial Blood 53 mmHg (39.1-73.5); Cord Venous Blood HCO3 21 mmol/L (18.4-26.8); Cord Venous Blood PCO2 42 mmHg (30.4-57.2); Cord Venous Blood PO2 31 mmHg (14.1-43.3); HCO3 Cord Arterial Blood 23 mmol/L (19.7-28.5); O2 Saturation Cord Venous Bld 65.8 % (<68); Oxygen Sat Cord Arterial Blood < 60.0 % (<60); PO2 Cord Arterial Blood < 20 mmHg (4.1-31.7); pH Cord Arterial Blood 7.24 (7.1-7.38)
[2024-08-14] MEDS: SODIUM CHLORIDE 0.9% 1,000 ML IV SCH ×2 (01:22→13:18)
[2024-08-14] MEDS: OXYTOCIN 20 UNITS/LR 1,002 ML IV SCH (01:38)
[2024-08-14] MEDS ORDERED: SODIUM CHLORIDE 0.9% 50 ML IV PRN ×3 (02:53→03:44)
[2024-08-14] MEDS ORDERED: SODIUM CHLORIDE 0.9% 100 ML IV PRN ×3 (02:53→03:44)
[2024-08-14] MEDS: OXYTOCIN 10 UNITS/ML 10ML VIAL IM ONE (03:33)
--- NOTE | 2024-08-14 03:35 | Obstetrical Progress Note ---
Date of Service August 14, 2024 Assessment & Plan Admission and Anticipated Discharge Date Admission Date: August 12, 2024 Subjective Called to patient's room to evaluate hemorrhage. She is awake, talking. At least 500cc clots (this is estimate - nursing staff will be weighing clots momentarily for more accurate measurement). On exam, fundus firm. Vaginal exam clots expressed, removed clots from vagina - seem to be forming in lower uterine segment. Will proceed to OR for stat exam under anesthesia, as patient is intolerant of exam and clot extraction. Will give cytotec VA, IM pitocin, and 1g TXA. Discussed with patient, verbal consent given. I called blood bank to initiate massive transfusion protocol. Results & Data Vital Signs (Past 12 Hours) Vital Signs Temp Pulse Resp BP Pulse Ox 08/14/24 02:04 98 H 98 08/14/24 02:00 36.4 C L 20 08/14/24 01:59 96 H 150/97 H 100 08/14/24 01:54 89 99 08/14/24 01:50 94 H 154/105 H 08/14/24 01:49 90 98 08/14/24 01:44 100 H 99 08/14/24 01:39 94 H 141/85 H 100 08/14/24 01:34 101 H 100 08/14/24 01:30 18 08/14/24 01:29 95 H 146/90 H 99 08/14/24 01:24 100 H 100 08/14/24 01:19 97 H 153/90 H 99 08/14/24 01:14 106 H 100 08/14/24 01:09 105 H 153/91 H 99 08/14/24 01:04 112 H 100 08/14/24 01:00 36.6 C 18 08/14/24 01:00 36.6 C 18 08/14/24 00:59 106 H 146/87 H 100 08/14/24 00:54 105 H 99 08/14/24 00:50 20 08/14/24 00:49 110 H 153/92 H 100 08/14/24 00:44 99 H 100 08/14/24 00:40 18 08/14/24 00:39 103 H 156/89 H 100 08/14/24 00:34 107 H 100 08/14/24 00:30 18 08/14/24 00:29 106 H 142/85 H 100 08/14/24 00:24 108 H 99 08/14/24 00:20 20 08/14/24 00:20 102 H 134/77 08/14/24 00:19 102 H 96 08/14/24 00:14 96 H 99 08/14/24 00:10 20 08/14/24 00:09 104 H 139/76 99 08/14/24 00:04 105 H 98 08/14/24 00:00 36.9 C 20 08/13/24 23:59 110 H 123/70 99 08/13/24 22:48 103 H 99 08/13/24 22:43 92 H 142/86 H 99 08/13/24 22:38 96 H 99 08/13/24 22:33 99 H 100 08/13/24 22:29 103 H 145/92 H 08/13/24 22:28 100 H 100 08/13/24 22:23 100 H 100 08/13/24 22:18 99 H 100 08/13/24 22:14 93 H 170/95 H 08/13/24 22:13 96 H 100 08/13/24 22:08 104 H 100 08/13/24 22:03 118 H 96 08/13/24 21:59 93 H 153/86 H 08/13/24 21:58 89 98 08/13/24 21:53 93 H 97 08/13/24 21:48 93 H 99 08/13/24 21:44 100 H 160/92 H 08/13/24 21:43 100 H 99 08/13/24 21:38 100 H 100 08/13/24 21:33 98 H 100 08/13/24 21:30 106 H 156/116 H 08/13/24 21:28 104 H 99 08/13/24 21:23 91 H 99 08/13/24 21:18 102 H 98 08/13/24 21:13 100 08/13/24 21:13 103 H 08/13/24 21:13 91 H 141/85 H 08/13/24 21:08 94 H 100 08/13/24 21:03 97 H 100 08/13/24 20:58 93 H 156/99 H 100 08/13/24 20:53 96 H 100 08/13/24 20:48 99 H 100 08/13/24 20:44 88 146/88 H 08/13/24 20:43 99 H 100 08/13/24 20:38 97 H 100 08/13/24 20:33 97 H 99 08/13/24 20:29 96 H 152/86 H 08/13/24 20:28 97 H 100 08/13/24 20:23 99 H 99 08/13/24 20:18 94 H 98 08/13/24 20:13 96 H 08/13/24 20:13 98 H 174/101 H 97 08/13/24 20:08 88 97 08/13/24 20:03 87 97 08/13/24 19:59 92 H 172/102 H 08/13/24 19:58 88 97 08/13/24 19:53 88 97 08/13/24 19:48 87 97 08/13/24 19:45 90 158/102 H 08/13/24 19:43 87 98 08/13/24 19:38 90 98 08/13/24 19:33 86 98 08/13/24 19:28 98 08/13/24 19:28 85 08/13/24 19:28 90 167/96 H 08/13/24 19:23 86 98 08/13/24 19:18 85 99 08/13/24 19:15 85 165/98 H 08/13/24 19:13 89 99 08/13/24 19:10 37.0 C 18 08/13/24 19:10 18 08/13/24 19:08 91 H 99 08/13/24 19:03 88 100 08/13/24 19:00 20 08/13/24 19:00 20 08/13/24 18:59 93 H 162/98 H 08/13/24 18:58 93 H 100 08/13/24 18:53 94 H 100 08/13/24 18:48 93 H 99 08/13/24 18:46 36.7 C 08/13/24 18:44 90 154/94 H 08/13/24 18:43 92 H 100 08/13/24 18:38 95 H 99 08/13/24 18:33 93 H 99 08/13/24 18:30 20 08/13/24 18:30 20 08/13/24 18:28 100 08/13/24 18:28 90 08/13/24 18:28 88 152/99 H 08/13/24 18:23 95 H 99 08/13/24 18:18 93 H 98 08/13/24 18:13 98 H 99 08/13/24 18:08 92 H 100 08/13/24 18:04 16 08/13/24 18:04 16 08/13/24 18:03 97 H 99 08/13/24 17:58 86 165/89 H 98 08/13/24 17:53 93 H 99 08/13/24 17:48 91 H 99 08/13/24 17:44 87 155/86 H 08/13/24 17:43 85 98 08/13/24 17:38 91 H 99 08/13/24 17:33 93 H 99 08/13/24 17:28 90 08/13/24 17:28 90 154/86 H 100 08/13/24 17:23 96 H 100 08/13/24 17:18 85 100 08/13/24 17:14 88 142/89 H 08/13/24 17:13 88 99 08/13/24 17:08 100 H 100 08/13/24 17:06 37.0 C 08/13/24 17:05 16 08/13/24 17:05 16 08/13/24 17:03 99 H 99 08/13/24 17:00 89 148/90 H 08/13/24 16:58 92 H 99 08/13/24 16:53 97 H 99 08/13/24 16:48 86 99 08/13/24 16:43 98 08/13/24 16:43 84 08/13/24 16:43 85 148/92 H 08/13/24 16:38 83 98 08/13/24 16:33 92 H 99 08/13/24 16:32 90 149/93 H 08/13/24 16:30 20 08/13/24 16:29 91 H 157/89 H 08/13/24 16:28 90 100 08/13/24 16:23 96 H 100 08/13/24 16:18 96 H 100 08/13/24 16:13 100 08/13/24 16:13 92 H 08/13/24 16:13 90 133/84 08/13/24 16:08 89 99 08/13/24 16:03 94 H 99 08/13/24 16:00 16 08/13/24 15:59 89 136/83 08/13/24 15:58 92 H 98 08/13/24 15:53 95 H 100 08/13/24 15:48 89 100 08/13/24 15:43 92 H 126/77 100 08/13/24 15:38 95 H 100 PG Care Time/CCT Total # of Minutes Spent Total Time Spent with Patient: Total time spent is greater than 50% in coordination of care (as documented) at patient's floor/unit and/or counseling patient: Coding Level of Care Code None
[2024-08-14] MEDS: TRANEXAMIC ACID / 0.7% NACL 1,000 MG/100 ML BAG IV STA (03:38)
[2024-08-14 04:03] LABS: Basophils # (auto) 0.02 K/uL (0.00-0.20); Basophils % (auto) 0.2 %; Eosinophils # (auto) 0.02 K/uL (0.00-0.50); Eosinophils % (auto) 0.2 %; Hematocrit (blood only) 24.9 % (37.0-47.0); Hematocrit (blood only) 25.6 % (37.0-47.0); Immature Granulocytes # (auto) 0.05 K/uL (0.01-0.20); Immature Granulocytes % (auto) 0.4 %; Lymphocytes # (auto) 0.98 K/uL (1.20-3.40); Lymphocytes % (auto) 8.2 %; Mean Corpuscular Hemoglobin 28.3 pg (25.0-34.0); Mean Corpuscular Hgb Conc 32.1 g/dL (32.0-36.0); Mean Platelet Volume 11.7 fL (9.4-12.4); Monocytes # (auto) 0.58 K/uL (0.11-0.59); Monocytes % (auto) 4.8 %; Neutrophils # (auto) 10.32 K/uL (1.40-6.50); Neutrophils % (auto) 86.2 %; Platelet Count 261 K/uL (130-400); RDW Coefficient of Variation 14.9 % (11.5-14.5); RDW Standard Deviation 47.8 fL (36.4-46.3); Red Blood Count 2.83 M/uL (4.20-5.40); White Blood Count 11.97 K/ul (4.8-10.8)
[2024-08-14] MEDS ORDERED: PROPOFOL IV EMULSION 10 MG/ML 20 ML VIAL IV ONE (04:07)
[2024-08-14] MEDS ORDERED: SUCCINYLCHOLINE CHLORIDE 20 MG/ML 10 ML VIAL IV ONE (04:07)
[2024-08-14] MEDS ORDERED: LIDOCAINE 2% 20 MG/ML 5 ML SYR IV ONE (04:09)
[2024-08-14] MEDS ORDERED: MIDAZOLAM HCL 1 MG/ML 2ML VIAL ONE (04:31)
[2024-08-14] MEDS: miSOPROStoL 200 MCG TAB PR ONE ×2 (04:33→08:49)
[2024-08-14 04:42] LABS: Fibrinogen 406 mg/dl (184-400); INR 0.9 (0.9-1.1); Partial Thromboplastin Ratio 1.2; Partial Thromboplastin Time 33 Seconds (21-31); Prothrombin Time 10.3 Seconds (9.0-12.0)
--- NOTE | 2024-08-14 05:15 | Operative Report ---
Post Operative Report Pre & Post Diagnosis Operation Date: 08/14/24 03:50 Pre: hemorrhage Post: Same I identified the patient and participated in the time-out.: Yes Procedure Operation Date: 08/14/24 03:50 Exam under anesthesia, curettage, placement of Frances device Surgeon Lani Patrick, DO [employer] [facility] none Quantitative Blood Loss (QBL) 1514 Findings Consistent with Post-Op Diagnosis Multiple large clots extracted from uterus Specimens none Drains espinoza, clear yellow Anesthesia Type General Complications none Disposition Accompanied Patient To Recovery: Yes Disposition: L&D Indications hemorrhage with 1407 cc weighed blood loss, attempts at uterine evacuation in her room were unsuccessful due to patient pain. Decision was made to proceed to the operating room for exam under anesthesia and likely placement of Frances intrauterine device. Description of Procedure The patient was taken to the operating room, underwent general anesthesia and she was prepared and draped in usual sterile fashion and placed in dorsolithotomy position with feet in yellowfin stirrups. Weighted speculum was placed in the vagina, anterior lip of cervix was grasped with a ring forcep, 97 cc of weight clots were evacuated from the uterus. The jaded device was placed into the uterus, 90 cc of sterile water in the balloon. This was connected to suction. The uterus became firm, and patient was monitored for approximately 20 minutes in the OR, no further bleeding noted. While we were in OR, blood arrived from the blood bank, and with the rapid transfuser, 2 units packed red blood cells were transfused. Patient also received 1 L of normal saline during the case. The following were used through her evaluation and and the exam under anesthesia-1000 mcg Cytotec rectally, 10 units IM Pitocin, dilute Pitocin in IV bag, TXA. Bleeding was controlled, patient was stable, and she was transferred from OR back to labor and delivery. I updated her mother in the room. Will plan to recheck hemoglobin at 5:30a, approximately 30 minutes after transfusion. I attest to the content of the Intraoperative Record and any orders documented therein. Any exceptions are noted below.
--- NOTE | 2024-08-14 05:15 | Anesthesiology Progress Note ---
Date of Service August 14, 2024 Anesthesia Post Procedure Vital Signs Vital Signs: Temp Pulse Pulse Resp BP BP Pulse Ox 08/14/24 05:11 99 08/14/24 05:11 108 H 08/14/24 03:05 16 100 08/14/24 03:00 36.8 C 102 H 16 150/92 H 100 08/14/24 02:50 16 99 08/14/24 02:04 98 H 98 08/14/24 02:00 36.4 C L 20 08/14/24 01:59 96 H 150/97 H 100 08/14/24 01:54 89 99 08/14/24 01:50 94 H 154/105 H 08/14/24 01:49 90 98 08/14/24 01:44 100 H 99 08/14/24 01:39 94 H 141/85 H 100 08/14/24 01:34 101 H 100 08/14/24 01:30 18 08/14/24 01:29 95 H 146/90 H 99 08/14/24 01:24 100 H 100 08/14/24 01:19 97 H 153/90 H 99 08/14/24 01:14 106 H 100 08/14/24 01:09 105 H 153/91 H 99 08/14/24 01:04 112 H 100 08/14/24 01:00 36.6 C 18 08/14/24 01:00 36.6 C 18 08/14/24 00:59 106 H 146/87 H 100 08/14/24 00:54 105 H 99 08/14/24 00:50 20 08/14/24 00:49 110 H 153/92 H 100 08/14/24 00:44 99 H 100 08/14/24 00:40 18 08/14/24 00:39 103 H 156/89 H 100 08/14/24 00:34 107 H 100 08/14/24 00:30 18 08/14/24 00:29 106 H 142/85 H 100 08/14/24 00:24 108 H 99 08/14/24 00:20 20 08/14/24 00:20 102 H 134/77 08/14/24 00:19 102 H 96 08/14/24 00:14 96 H 99 08/14/24 00:10 20 08/14/24 00:09 104 H 139/76 99 08/14/24 00:04 105 H 98 08/14/24 00:00 36.9 C 20 08/13/24 23:59 110 H 123/70 99 08/13/24 22:48 103 H 99 08/13/24 22:43 92 H 142/86 H 99 08/13/24 22:38 96 H 99 08/13/24 22:33 99 H 100 08/13/24 22:29 103 H 145/92 H 08/13/24 22:28 100 H 100 08/13/24 22:23 100 H 100 08/13/24 22:18 99 H 100 08/13/24 22:14 93 H 170/95 H 08/13/24 22:13 96 H 100 08/13/24 22:08 104 H 100 08/13/24 22:03 118 H 96 08/13/24 21:59 93 H 153/86 H 08/13/24 21:58 89 98 08/13/24 21:53 93 H 97 08/13/24 21:48 93 H 99 08/13/24 21:44 100 H 160/92 H 08/13/24 21:43 100 H 99 08/13/24 21:38 100 H 100 08/13/24 21:33 98 H 100 08/13/24 21:30 106 H 156/116 H 08/13/24 21:28 104 H 99 08/13/24 21:23 91 H 99 08/13/24 21:18 102 H 98 08/13/24 21:13 100 08/13/24 21:13 103 H 08/13/24 21:13 91 H 141/85 H 08/13/24 21:08 94 H 100 08/13/24 21:03 97 H 100 08/13/24 20:58 93 H 156/99 H 100 08/13/24 20:53 96 H 100 08/13/24 20:48 99 H 100 08/13/24 20:44 88 146/88 H 08/13/24 20:43 99 H 100 08/13/24 20:38 97 H 100 08/13/24 20:33 97 H 99 08/13/24 20:29 96 H 152/86 H 08/13/24 20:28 97 H 100 08/13/24 20:23 99 H 99 08/13/24 20:18 94 H 98 08/13/24 20:13 96 H 08/13/24 20:13 98 H 174/101 H 97 08/13/24 20:08 88 97 08/13/24 20:03 87 97 08/13/24 19:59 92 H 172/102 H 08/13/24 19:58 88 97 08/13/24 19:53 88 97 08/13/24 19:48 87 97 08/13/24 19:45 90 158/102 H 08/13/24 19:43 87 98 08/13/24 19:38 90 98 08/13/24 19:33 86 98 08/13/24 19:28 98 08/13/24 19:28 85 08/13/24 19:28 90 167/96 H 08/13/24 19:23 86 98 08/13/24 19:18 85 99 08/13/24 19:15 85 165/98 H 08/13/24 19:13 89 99 08/13/24 19:10 37.0 C 18 08/13/24 19:10 18 08/13/24 19:08 91 H 99 08/13/24 19:03 88 100 08/13/24 19:00 20 08/13/24 19:00 20 08/13/24 18:59 93 H 162/98 H 08/13/24 18:58 93 H 100 08/13/24 18:53 94 H 100 08/13/24 18:48 93 H 99 08/13/24 18:46 36.7 C 08/13/24 18:44 90 154/94 H 08/13/24 18:43 92 H 100 08/13/24 18:38 95 H 99 08/13/24 18:33 93 H 99 08/13/24 18:30 20 08/13/24 18:30 20 08/13/24 18:28 100 08/13/24 18:28 90 08/13/24 18:28 88 152/99 H 08/13/24 18:23 95 H 99 08/13/24 18:18 93 H 98 08/13/24 18:13 98 H 99 08/13/24 18:08 92 H 100 08/13/24 18:04 16 08/13/24 18:04 16 08/13/24 18:03 97 H 99 08/13/24 17:58 86 165/89 H 98 08/13/24 17:53 93 H 99 08/13/24 17:48 91 H 99 08/13/24 17:44 87 155/86 H 08/13/24 17:43 85 98 08/13/24 17:38 91 H 99 08/13/24 17:33 93 H 99 08/13/24 17:28 90 08/13/24 17:28 90 154/86 H 100 08/13/24 17:23 96 H 100 08/13/24 17:18 85 100 08/13/24 17:14 88 142/89 H 08/13/24 17:13 88 99 08/13/24 17:08 100 H 100 08/13/24 17:06 37.0 C 08/13/24 17:05 16 08/13/24 17:05 16 08/13/24 17:03 99 H 99 08/13/24 17:00 89 148/90 H 08/13/24 16:58 92 H 99 08/13/24 16:53 97 H 99 08/13/24 16:48 86 99 08/13/24 16:43 98 08/13/24 16:43 84 08/13/24 16:43 85 148/92 H 08/13/24 16:38 83 98 08/13/24 16:33 92 H 99 08/13/24 16:32 90 149/93 H 08/13/24 16:30 20 08/13/24 16:29 91 H 157/89 H 08/13/24 16:28 90 100 08/13/24 16:23 96 H 100 08/13/24 16:18 96 H 100 08/13/24 16:13 100 08/13/24 16:13 92 H 08/13/24 16:13 90 133/84 08/13/24 16:08 89 99 08/13/24 16:03 94 H 99 08/13/24 16:00 16 08/13/24 15:59 89 136/83 08/13/24 15:58 92 H 98 08/13/24 15:53 95 H 100 08/13/24 15:48 89 100 08/13/24 15:43 92 H 126/77 100 08/13/24 15:38 95 H 100 08/13/24 15:33 96 H 100 08/13/24 15:30 20 08/13/24 15:30 88 144/83 H 08/13/24 15:28 93 H 99 08/13/24 15:23 91 H 100 08/13/24 15:18 90 100 08/13/24 15:14 90 141/92 H 08/13/24 15:13 91 H 100 08/13/24 15:08 90 99 08/13/24 15:06 36.9 C 08/13/24 15:03 89 99 08/13/24 15:00 16 08/13/24 15:00 92 H 143/92 H 08/13/24 14:58 92 H 100 08/13/24 14:53 88 100 08/13/24 14:48 90 100 08/13/24 14:44 90 150/90 H 08/13/24 14:43 89 100 08/13/24 14:38 90 100 08/13/24 14:33 92 H 99 08/13/24 14:30 86 16 159/92 H 08/13/24 14:28 86 143/93 H 98 08/13/24 14:23 81 99 08/13/24 14:18 83 99 08/13/24 14:14 83 145/90 H 08/13/24 14:13 82 99 08/13/24 14:08 83 99 08/13/24 14:03 88 98 08/13/24 14:00 83 160/89 H 08/13/24 13:58 86 98 08/13/24 13:53 78 99 08/13/24 13:48 83 98 08/13/24 13:44 86 144/89 H 08/13/24 13:43 86 98 08/13/24 13:38 81 99 08/13/24 13:33 82 99 08/13/24 13:30 16 08/13/24 13:28 80 163/98 H 99 08/13/24 13:23 77 100 08/13/24 13:18 75 100 08/13/24 13:14 86 155/91 H 08/13/24 13:13 80 100 08/13/24 13:08 80 99 08/13/24 13:03 86 98 08/13/24 13:01 37.1 C 08/13/24 13:00 20 08/13/24 13:00 78 165/90 H 08/13/24 12:58 74 99 08/13/24 12:53 74 99 08/13/24 12:48 74 99 08/13/24 12:44 77 164/94 H 08/13/24 12:43 79 99 08/13/24 12:38 82 100 08/13/24 12:33 81 100 08/13/24 12:30 16 08/13/24 12:29 85 140/95 08/13/24 12:28 88 100 08/13/24 12:23 75 100 08/13/24 12:18 82 99 08/13/24 12:15 81 152/84 H 08/13/24 12:13 72 99 08/13/24 12:08 77 99 08/13/24 12:03 71 99 08/13/24 12:00 18 08/13/24 12:00 74 163/93 H 08/13/24 11:58 79 99 08/13/24 11:53 83 98 08/13/24 11:48 85 100 08/13/24 11:44 70 153/94 H 08/13/24 11:43 73 98 08/13/24 11:38 69 98 08/13/24 11:33 70 98 08/13/24 11:30 16 08/13/24 11:30 16 08/13/24 11:28 69 139/93 98 08/13/24 11:23 71 98 08/13/24 11:18 72 98 08/13/24 11:14 76 139/87 08/13/24 11:13 78 99 08/13/24 11:08 71 98 08/13/24 11:03 78 17 99 08/13/24 10:59 77 142/83 H 08/13/24 10:58 76 98 08/13/24 10:53 70 98 08/13/24 10:48 74 98 08/13/24 10:43 71 146/85 H 98 08/13/24 10:38 75 98 08/13/24 10:33 74 98 08/13/24 10:29 73 143/85 H 08/13/24 10:28 77 99 08/13/24 10:23 76 99 08/13/24 10:18 79 99 08/13/24 10:13 99 08/13/24 10:13 71 08/13/24 10:13 83 128/85 08/13/24 10:08 99 08/13/24 10:08 77 08/13/24 10:08 77 121/81 08/13/24 10:03 88 126/84 99 08/13/24 10:00 16 08/13/24 10:00 16 08/13/24 09:59 96 H 126/87 08/13/24 09:58 97 H 99 08/13/24 09:54 89 133/80 08/13/24 09:53 36.5 C 89 98 08/13/24 09:48 97 08/13/24 09:48 90 08/13/24 09:48 84 135/80 08/13/24 09:45 17 08/13/24 09:45 17 08/13/24 09:43 99 08/13/24 09:43 79 08/13/24 09:43 73 125/73 08/13/24 09:39 83 129/80 08/13/24 09:38 82 98 08/13/24 09:33 85 126/77 97 08/13/24 09:30 16 08/13/24 09:30 16 08/13/24 09:28 82 128/73 97 08/13/24 09:23 97 08/13/24 09:23 81 08/13/24 09:23 84 111/75 08/13/24 09:19 88 130/79 08/13/24 09:18 86 98 08/13/24 09:15 20 08/13/24 09:13 81 114/75 97 08/13/24 09:08 81 132/70 96 08/13/24 09:03 96 08/13/24 09:03 89 08/13/24 09:03 90 112/68 08/13/24 09:00 18 08/13/24 08:58 90 117/71 96 08/13/24 08:54 96 H 123/67 08/13/24 08:53 97 H 96 08/13/24 08:49 93 H 123/70 08/13/24 08:48 96 H 97 08/13/24 08:45 20 08/13/24 08:43 96 08/13/24 08:43 92 H 08/13/24 08:43 96 H 128/71 08/13/24 08:39 93 H 133/73 08/13/24 08:38 95 H 98 08/13/24 08:33 99 H 98 08/13/24 08:31 102 H 130/76 08/13/24 08:30 18 08/13/24 08:29 100 H 144/79 H 08/13/24 08:28 99 H 97 08/13/24 08:27 99 H 142/85 H 08/13/24 08:25 96 H 158/85 H 08/13/24 08:23 92 H 168/93 H 99 08/13/24 08:21 98 H 159/75 H 08/13/24 08:18 88 99 08/13/24 08:13 81 182/99 H 08/13/24 07:15 83 138/84 08/13/24 06:44 81 131/82 08/13/24 06:13 83 139/83 08/13/24 05:44 83 154/87 H O2 Del Method 08/14/24 05:11 08/14/24 05:11 08/14/24 03:05 08/14/24 03:00 Room Air 08/14/24 02:50 08/14/24 02:04 08/14/24 02:00 08/14/24 01:59 08/14/24 01:54 08/14/24 01:50 08/14/24 01:49 08/14/24 01:44 08/14/24 01:39 08/14/24 01:34 08/14/24 01:30 08/14/24 01:29 08/14/24 01:24 08/14/24 01:19 08/14/24 01:14 08/14/24 01:09 08/14/24 01:04 08/14/24 01:00 08/14/24 01:00 08/14/24 00:59 08/14/24 00:54 08/14/24 00:50 08/14/24 00:49 08/14/24 00:44 08/14/24 00:40 08/14/24 00:39 08/14/24 00:34 08/14/24 00:30 08/14/24 00:29 08/14/24 00:24 08/14/24 00:20 08/14/24 00:20 08/14/24 00:19 08/14/24 00:14 08/14/24 00:10 08/14/24 00:09 08/14/24 00:04 08/14/24 00:00 08/13/24 23:59 08/13/24 22:48 08/13/24 22:43 08/13/24 22:38 08/13/24 22:33 08/13/24 22:29 08/13/24 22:28 08/13/24 22:23 08/13/24 22:18 08/13/24 22:14 08/13/24 22:13 08/13/24 22:08 08/13/24 22:03 08/13/24 21:59 08/13/24 21:58 08/13/24 21:53 08/13/24 21:48 08/13/24 21:44 08/13/24 21:43 08/13/24 21:38 08/13/24 21:33 08/13/24 21:30 08/13/24 21:28 08/13/24 21:23 08/13/24 21:18 08/13/24 21:13 08/13/24 21:13 08/13/24 21:13 08/13/24 21:08 08/13/24 21:03 08/13/24 20:58 08/13/24 20:53 08/13/24 20:48 08/13/24 20:44 08/13/24 20:43 08/13/24 20:38 08/13/24 20:33 08/13/24 20:29 08/13/24 20:28 08/13/24 20:23 08/13/24 20:18 08/13/24 20:13 08/13/24 20:13 08/13/24 20:08 08/13/24 20:03 08/13/24 19:59 08/13/24 19:58 08/13/24 19:53 08/13/24 19:48 08/13/24 19:45 08/13/24 19:43 08/13/24 19:38 08/13/24 19:33 08/13/24 19:28 08/13/24 19:28 08/13/24 19:28 08/13/24 19:23 08/13/24 19:18 08/13/24 19:15 08/13/24 19:13 08/13/24 19:10 08/13/24 19:10 08/13/24 19:08 08/13/24 19:03 08/13/24 19:00 08/13/24 19:00 08/13/24 18:59 08/13/24 18:58 08/13/24 18:53 08/13/24 18:48 08/13/24 18:46 08/13/24 18:44 08/13/24 18:43 08/13/24 18:38 08/13/24 18:33 08/13/24 18:30 08/13/24 18:30 08/13/24 18:28 08/13/24 18:28 08/13/24 18:28 08/13/24 18:23 08/13/24 18:18 08/13/24 18:13 08/13/24 18:08 08/13/24 18:04 08/13/24 18:04 08/13/24 18:03 08/13/24 17:58 08/13/24 17:53 08/13/24 17:48 08/13/24 17:44 08/13/24 17:43 08/13/24 17:38 08/13/24 17:33 08/13/24 17:28 08/13/24 17:28 08/13/24 17:23 08/13/24 17:18 08/13/24 17:14 08/13/24 17:13 08/13/24 17:08 08/13/24 17:06 08/13/24 17:05 08/13/24 17:05 08/13/24 17:03 08/13/24 17:00 08/13/24 16:58 08/13/24 16:53 08/13/24 16:48 08/13/24 16:43 08/13/24 16:43 08/13/24 16:43 08/13/24 16:38 08/13/24 16:33 08/13/24 16:32 08/13/24 16:30 08/13/24 16:29 08/13/24 16:28 08/13/24 16:23 08/13/24 16:18 08/13/24 16:13 08/13/24 16:13 08/13/24 16:13 08/13/24 16:08 08/13/24 16:03 08/13/24 16:00 08/13/24 15:59 08/13/24 15:58 08/13/24 15:53 08/13/24 15:48 08/13/24 15:43 08/13/24 15:38 08/13/24 15:33 08/13/24 15:30 08/13/24 15:30 08/13/24 15:28 08/13/24 15:23 08/13/24 15:18 08/13/24 15:14 08/13/24 15:13 08/13/24 15:08 08/13/24 15:06 08/13/24 15:03 08/13/24 15:00 08/13/24 15:00 08/13/24 14:58 08/13/24 14:53 08/13/24 14:48 08/13/24 14:44 08/13/24 14:43 08/13/24 14:38 08/13/24 14:33 08/13/24 14:30 08/13/24 14:28 08/13/24 14:23 08/13/24 14:18 08/13/24 14:14 08/13/24 14:13 08/13/24 14:08 08/13/24 14:03 08/13/24 14:00 08/13/24 13:58 08/13/24 13:53 08/13/24 13:48 08/13/24 13:44 08/13/24 13:43 08/13/24 13:38 08/13/24 13:33 08/13/24 13:30 08/13/24 13:28 08/13/24 13:23 08/13/24 13:18 08/13/24 13:14 08/13/24 13:13 08/13/24 13:08 08/13/24 13:03 08/13/24 13:01 08/13/24 13:00 08/13/24 13:00 08/13/24 12:58 08/13/24 12:53 08/13/24 12:48 08/13/24 12:44 08/13/24 12:43 08/13/24 12:38 08/13/24 12:33 08/13/24 12:30 08/13/24 12:29 08/13/24 12:28 08/13/24 12:23 08/13/24 12:18 08/13/24 12:15 08/13/24 12:13 08/13/24 12:08 08/13/24 12:03 08/13/24 12:00 08/13/24 12:00 08/13/24 11:58 08/13/24 11:53 08/13/24 11:48 08/13/24 11:44 08/13/24 11:43 08/13/24 11:38 08/13/24 11:33 08/13/24 11:30 08/13/24 11:30 08/13/24 11:28 08/13/24 11:23 08/13/24 11:18 08/13/24 11:14 08/13/24 11:13 08/13/24 11:08 08/13/24 11:03 08/13/24 10:59 08/13/24 10:58 08/13/24 10:53 08/13/24 10:48 08/13/24 10:43 08/13/24 10:38 08/13/24 10:33 08/13/24 10:29 08/13/24 10:28 08/13/24 10:23 08/13/24 10:18 08/13/24 10:13 08/13/24 10:13 08/13/24 10:13 08/13/24 10:08 08/13/24 10:08 08/13/24 10:08 08/13/24 10:03 08/13/24 10:00 08/13/24 10:00 08/13/24 09:59 08/13/24 09:58 08/13/24 09:54 08/13/24 09:53 08/13/24 09:48 08/13/24 09:48 08/13/24 09:48 08/13/24 09:45 08/13/24 09:45 08/13/24 09:43 08/13/24 09:43 08/13/24 09:43 08/13/24 09:39 08/13/24 09:38 08/13/24 09:33 08/13/24 09:30 08/13/24 09:30 08/13/24 09:28 08/13/24 09:23 08/13/24 09:23 08/13/24 09:23 08/13/24 09:19 08/13/24 09:18 08/13/24 09:15 08/13/24 09:13 08/13/24 09:08 08/13/24 09:03 08/13/24 09:03 08/13/24 09:03 08/13/24 09:00 08/13/24 08:58 08/13/24 08:54 08/13/24 08:53 08/13/24 08:49 08/13/24 08:48 08/13/24 08:45 08/13/24 08:43 08/13/24 08:43 08/13/24 08:43 08/13/24 08:39 08/13/24 08:38 08/13/24 08:33 08/13/24 08:31 08/13/24 08:30 08/13/24 08:29 08/13/24 08:28 08/13/24 08:27 08/13/24 08:25 08/13/24 08:23 08/13/24 08:21 08/13/24 08:18 08/13/24 08:13 08/13/24 07:15 08/13/24 06:44 08/13/24 06:13 08/13/24 05:44 Pain Intensity Abdomen: Pain Intensity: 2 Transfer of Care Handoff Completed per policy Notes Mental Status: alert / awake / arousable Patient Amnestic to Procedure: Yes Nausea / Vomiting: adequately controlled Pain: adequately controlled Airway Patency, RR, SpO2: stable & adequate BP & HR: stable & adequate Hydration State: stable & adequate Anesthetic Complications: no major complications apparent and Pt Satisfied with anesthetic care
--- NOTE | 2024-08-14 05:16 | Communication Note ---
Date of Service: August 14, 2024 called for return to OR for pph, lost 1407 cc blood on . hb 8. HDS. plan [place]. [email or web address]
[2024-08-14] MEDS ORDERED: fentaNYL citrate PF 100 MCG/2 ML VIAL IV PRN (05:17)
[2024-08-14] MEDS ORDERED: ATROPINE SULFATE 0.1 MG/ML 10ML SYR IV PRN (05:17)
[2024-08-14] MEDS ORDERED: ePHEDrine sulfate 50 MG/ML AMP IV PRN (05:17)
[2024-08-14] MEDS ORDERED: AZITHROMYCIN 500 MG in SODIUM CHLORIDE 0.9% 250 ML IV SCH (06:00)
[2024-08-14 06:18] LABS: Hematocrit (blood only) 35.9 % (37.0-47.0); Hemoglobin 11.4 g/dl (12.0-16.0)
[2024-08-14] MEDS: LABETALOL HCL IV 5 MG/ML 20ML IV STA ×2 (06:28→07:15)
[2024-08-14 07:59] LABS: Hematocrit (blood only) 30.5 % (37.0-47.0); Mean Corpuscular Hemoglobin 28.2 pg (25.0-34.0); Mean Corpuscular Hgb Conc 32.8 g/dL (32.0-36.0); Mean Corpuscular Volume 85.9 fL (80.0-100.0); Mean Platelet Volume 11.4 fL (9.4-12.4); Platelet Count 164 K/uL (130-400); RDW Coefficient of Variation 14.3 % (11.5-14.5); RDW Standard Deviation 44.7 fL (36.4-46.3); Red Blood Count 3.55 M/uL (4.20-5.40); White Blood Count 11.21 K/ul (4.8-10.8)
[2024-08-14] MEDS: ceFAZolin 1000MG 1,000 MG/7.5 ML SYR IV SCH (08:30)
[2024-08-14 08:45] LABS: Albumin Globulin Ratio 0.8 (0.9-2); Albumin Level 1.9 gm/dl (3.4-5.0); Calcium 7.1 mg/dl (8.6-10.3); Creatinine Clr Calc Pharmacy 81.4 ml/min; Globulin 2.3 gm/dl (2.5-4.0); Potassium 4.7 mmol/L (3.5-5.1); Total Protein 4.2 gm/dl (6.0-8.3)
[2024-08-14] MEDS: MoRPHine SULFATE PF 1 MG/ML 10 ML AMP/VIAL EPI ONE (08:48)
[2024-08-14] MEDS: DIPHTHER/TETAN/PERTUS Vaccine (Tdap, Adol/Adult) 0.5mL IM ONE (08:49)
[2024-08-14] MEDS: LABETALOL HCL IV 5 MG/ML 20ML IV ONE (08:50)
[2024-08-14] MEDS: miSOPROStoL 200 MCG TAB ONE (08:50)
[2024-08-14] MEDS: OXYTOCIN 10 UNITS/ML VIAL ONE (08:50)
[2024-08-14] MEDS: TRANEXAMIC ACID / 0.7% NACL 1000MG/100ML BAG IV ONE (08:50)
--- NOTE | 2024-08-14 09:31 | Obstetrical Progress Note ---
Date of Service August 14, 2024 Assessment & Plan (1) Severe preeclampsia: (2) S/P section: (3) PPH ( hemorrhage): Plan recent labs stable hgb but creat 1.4. given use of iv labetalol to manage bps rec treating as preeclampsia with severe features. will start magnesium. RR was low earlier and so will not bolus. Urine output seems to be improving. Lungs clear and O2 sats normal. Bleeding has been stable with Frances off suction. Will get mag started and reeval bleeding and if remains stable will remove frances. pt aware. earlier had answered many questions that she had, many of which had to do if she was out of danger and she was made aware that she was stable but hard to predict future as to any other complications. she verbalized understanding. Admission and Anticipated Discharge Date Admission Date: August 12, 2024 Subjective pt resting. she denies pain or sob no mooney. made her aware of labs. Physical Exam Constitutional: WD/WN, vitals as above Respiratory: normal respiratory effort, lungs clear to auscultation Neurologic: dtrs +2 -+3 per resident Results & Data Vital Signs (Past 12 Hours) Vital Signs Temp Pulse Pulse Resp BP BP Pulse Ox 08/14/24 09:21 95 08/14/24 09:21 85 08/14/24 09:16 96 08/14/24 09:16 85 08/14/24 09:16 94 08/14/24 09:16 85 08/14/24 09:11 95 08/14/24 09:11 84 08/14/24 09:11 156/96 H 08/14/24 09:07 94 08/14/24 09:07 86 08/14/24 09:06 95 08/14/24 09:06 83 08/14/24 09:01 96 08/14/24 09:01 87 08/14/24 09:00 94 08/14/24 09:00 85 08/14/24 08:56 94 08/14/24 08:56 84 08/14/24 08:56 90 08/14/24 08:56 150/92 H 08/14/24 08:54 93 08/14/24 08:54 85 08/14/24 08:51 94 08/14/24 08:51 88 08/14/24 08:49 93 08/14/24 08:49 88 08/14/24 08:46 95 08/14/24 08:46 85 08/14/24 08:44 93 08/14/24 08:44 87 08/14/24 08:41 95 08/14/24 08:41 85 08/14/24 08:41 16 144/94 H 08/14/24 08:38 93 08/14/24 08:38 86 08/14/24 08:36 96 08/14/24 08:36 86 08/14/24 08:33 94 08/14/24 08:33 85 08/14/24 08:31 96 08/14/24 08:31 83 08/14/24 08:26 95 08/14/24 08:26 84 08/14/24 08:25 91 H 156/96 H 08/14/24 08:25 94 08/14/24 08:25 83 08/14/24 08:24 90 165/100 H 08/14/24 08:21 98 08/14/24 08:21 95 H 08/14/24 08:21 93 H 08/14/24 08:21 151/91 H 08/14/24 08:16 98 08/14/24 08:16 95 H 08/14/24 08:16 14 153/95 H 08/14/24 08:12 94 08/14/24 08:12 88 08/14/24 08:11 97 08/14/24 08:11 97 H 08/14/24 08:11 161/90 H 08/14/24 08:06 94 08/14/24 08:06 86 08/14/24 08:06 161/90 H 08/14/24 08:01 95 08/14/24 08:01 86 08/14/24 08:01 83 08/14/24 08:01 10 L 149/92 H 08/14/24 07:59 93 08/14/24 07:59 87 08/14/24 07:56 98 08/14/24 07:56 91 H 08/14/24 07:56 87 08/14/24 07:56 155/96 H 08/14/24 07:51 98 08/14/24 07:51 94 H 08/14/24 07:51 86 08/14/24 07:51 157/95 H 08/14/24 07:46 99 08/14/24 07:46 94 H 12 08/14/24 07:46 163/98 H 08/14/24 07:41 99 08/14/24 07:41 93 H 08/14/24 07:41 149/94 H 08/14/24 07:36 99 08/14/24 07:36 93 H 08/14/24 07:36 157/93 H 08/14/24 07:31 98 08/14/24 07:31 99 H 08/14/24 07:31 91 H 08/14/24 07:31 156/96 H 08/14/24 07:30 10 L 99 08/14/24 07:30 99.0 F 10 L 99 08/14/24 07:30 08/14/24 07:26 98 08/14/24 07:26 88 08/14/24 07:26 90 08/14/24 07:26 150/94 H 08/14/24 07:25 91 08/14/24 07:25 91 H 08/14/24 07:21 99 08/14/24 07:21 92 H 08/14/24 07:21 99 H 08/14/24 07:21 143/94 H 08/14/24 07:16 98 08/14/24 07:16 99.0 F 86 10 L 08/14/24 07:15 90 169/101 H 08/14/24 07:11 98 08/14/24 07:11 89 08/14/24 07:06 95 08/14/24 07:06 86 08/14/24 07:01 97 08/14/24 07:01 99 H 08/14/24 06:56 99 08/14/24 06:56 106 H 08/14/24 06:56 93 H 08/14/24 06:56 169/101 H 08/14/24 06:51 97 08/14/24 06:51 105 H 08/14/24 06:51 86 08/14/24 06:51 166/99 H 08/14/24 06:48 94 08/14/24 06:48 88 08/14/24 06:46 97 08/14/24 06:46 88 08/14/24 06:46 90 08/14/24 06:46 165/100 H 08/14/24 06:41 96 08/14/24 06:41 87 08/14/24 06:41 85 08/14/24 06:41 164/98 H 08/14/24 06:40 92 08/14/24 06:40 87 08/14/24 06:36 94 08/14/24 06:36 90 08/14/24 06:36 170/97 H 08/14/24 06:34 91 08/14/24 06:34 90 08/14/24 06:31 98 08/14/24 06:31 93 H 08/14/24 06:28 99 H 175/107 H 08/14/24 06:28 92 08/14/24 06:28 97 H 08/14/24 06:26 99 08/14/24 06:26 111 H 08/14/24 06:21 100 08/14/24 06:21 117 H 08/14/24 06:19 112 H 08/14/24 06:19 175/107 H 08/14/24 06:16 96 08/14/24 06:16 105 H 08/14/24 06:11 98 08/14/24 06:11 102 H 08/14/24 06:06 99 08/14/24 06:06 100 H 08/14/24 06:04 111 H 08/14/24 06:04 158/92 H 08/14/24 06:01 99 08/14/24 06:01 117 H 08/14/24 06:00 18 08/14/24 05:56 99 08/14/24 05:56 127 H 08/14/24 05:51 99 08/14/24 05:51 132 H 08/14/24 05:49 126 H 08/14/24 05:49 173/100 H 08/14/24 05:46 99 08/14/24 05:46 133 H 08/14/24 05:45 20 08/14/24 05:41 99 08/14/24 05:41 134 H 08/14/24 05:36 100 08/14/24 05:36 131 H 08/14/24 05:34 130 H 08/14/24 05:34 184/118 H 08/14/24 05:31 100 08/14/24 05:31 135 H 08/14/24 05:30 13 08/14/24 05:26 100 08/14/24 05:26 130 H 08/14/24 05:21 99 08/14/24 05:21 120 H 08/14/24 05:18 113 H 08/14/24 05:18 145/93 H 08/14/24 05:16 98 08/14/24 05:16 106 H 08/14/24 05:15 12 08/14/24 05:11 99 08/14/24 05:11 108 H 08/14/24 03:05 16 100 08/14/24 03:00 98.2 F 102 H 16 150/92 H 100 08/14/24 02:50 16 99 08/14/24 02:04 98 H 98 08/14/24 02:00 97.5 F L 20 08/14/24 01:59 96 H 150/97 H 100 08/14/24 01:54 89 99 08/14/24 01:50 94 H 154/105 H 08/14/24 01:49 90 98 08/14/24 01:44 100 H 99 08/14/24 01:39 94 H 141/85 H 100 08/14/24 01:34 101 H 100 08/14/24 01:30 18 08/14/24 01:29 95 H 146/90 H 99 08/14/24 01:24 100 H 100 08/14/24 01:19 97 H 153/90 H 99 08/14/24 01:14 106 H 100 08/14/24 01:09 105 H 153/91 H 99 08/14/24 01:04 112 H 100 08/14/24 01:00 97.9 F 18 08/14/24 01:00 97.9 F 18 08/14/24 00:59 106 H 146/87 H 100 08/14/24 00:54 105 H 99 08/14/24 00:50 20 08/14/24 00:49 110 H 153/92 H 100 08/14/24 00:44 99 H 100 08/14/24 00:40 18 08/14/24 00:39 103 H 156/89 H 100 08/14/24 00:34 107 H 100 08/14/24 00:30 18 08/14/24 00:29 106 H 142/85 H 100 08/14/24 00:24 108 H 99 08/14/24 00:20 20 08/14/24 00:20 102 H 134/77 08/14/24 00:19 102 H 96 08/14/24 00:14 96 H 99 08/14/24 00:10 20 08/14/24 00:09 104 H 139/76 99 08/14/24 00:04 105 H 98 08/14/24 00:00 98.4 F 20 08/13/24 23:59 110 H 123/70 99 08/13/24 22:48 103 H 99 08/13/24 22:43 92 H 142/86 H 99 08/13/24 22:38 96 H 99 08/13/24 22:33 99 H 100 08/13/24 22:29 103 H 145/92 H 08/13/24 22:28 100 H 100 08/13/24 22:23 100 H 100 08/13/24 22:18 99 H 100 08/13/24 22:14 93 H 170/95 H 08/13/24 22:13 96 H 100 08/13/24 22:08 104 H 100 08/13/24 22:03 118 H 96 08/13/24 21:59 93 H 153/86 H 08/13/24 21:58 89 98 08/13/24 21:53 93 H 97 08/13/24 21:48 93 H 99 08/13/24 21:44 100 H 160/92 H 08/13/24 21:43 100 H 99 08/13/24 21:38 100 H 100 08/13/24 21:33 98 H 100 08/13/24 21:30 106 H 156/116 H 08/13/24 21:28 104 H 99 O2 Del Method 08/14/24 09:21 08/14/24 09:21 08/14/24 09:16 08/14/24 09:16 08/14/24 09:16 08/14/24 09:16 08/14/24 09:11 08/14/24 09:11 08/14/24 09:11 08/14/24 09:07 08/14/24 09:07 08/14/24 09:06 08/14/24 09:06 08/14/24 09:01 08/14/24 09:01 08/14/24 09:00 08/14/24 09:00 08/14/24 08:56 08/14/24 08:56 08/14/24 08:56 08/14/24 08:56 08/14/24 08:54 08/14/24 08:54 08/14/24 08:51 08/14/24 08:51 08/14/24 08:49 08/14/24 08:49 08/14/24 08:46 08/14/24 08:46 08/14/24 08:44 08/14/24 08:44 08/14/24 08:41 08/14/24 08:41 08/14/24 08:41 08/14/24 08:38 08/14/24 08:38 08/14/24 08:36 08/14/24 08:36 08/14/24 08:33 08/14/24 08:33 08/14/24 08:31 08/14/24 08:31 08/14/24 08:26 08/14/24 08:26 08/14/24 08:25 08/14/24 08:25 08/14/24 08:25 08/14/24 08:24 08/14/24 08:21 08/14/24 08:21 08/14/24 08:21 08/14/24 08:21 08/14/24 08:16 08/14/24 08:16 08/14/24 08:16 08/14/24 08:12 08/14/24 08:12 08/14/24 08:11 08/14/24 08:11 08/14/24 08:11 08/14/24 08:06 08/14/24 08:06 08/14/24 08:06 08/14/24 08:01 08/14/24 08:01 08/14/24 08:01 08/14/24 08:01 08/14/24 07:59 08/14/24 07:59 08/14/24 07:56 08/14/24 07:56 08/14/24 07:56 08/14/24 07:56 08/14/24 07:51 08/14/24 07:51 08/14/24 07:51 08/14/24 07:51 08/14/24 07:46 08/14/24 07:46 08/14/24 07:46 08/14/24 07:41 08/14/24 07:41 08/14/24 07:41 08/14/24 07:36 08/14/24 07:36 08/14/24 07:36 08/14/24 07:31 08/14/24 07:31 08/14/24 07:31 08/14/24 07:31 08/14/24 07:30 08/14/24 07:30 08/14/24 07:30 Room Air 08/14/24 07:26 08/14/24 07:26 08/14/24 07:26 08/14/24 07:26 08/14/24 07:25 08/14/24 07:25 08/14/24 07:21 08/14/24 07:21 08/14/24 07:21 08/14/24 07:21 08/14/24 07:16 08/14/24 07:16 08/14/24 07:15 08/14/24 07:11 08/14/24 07:11 08/14/24 07:06 08/14/24 07:06 08/14/24 07:01 08/14/24 07:01 08/14/24 06:56 08/14/24 06:56 08/14/24 06:56 08/14/24 06:56 08/14/24 06:51 08/14/24 06:51 08/14/24 06:51 08/14/24 06:51 08/14/24 06:48 08/14/24 06:48 08/14/24 06:46 08/14/24 06:46 08/14/24 06:46 08/14/24 06:46 08/14/24 06:41 08/14/24 06:41 08/14/24 06:41 08/14/24 06:41 08/14/24 06:40 08/14/24 06:40 08/14/24 06:36 08/14/24 06:36 08/14/24 06:36 08/14/24 06:34 08/14/24 06:34 08/14/24 06:31 08/14/24 06:31 08/14/24 06:28 08/14/24 06:28 08/14/24 06:28 08/14/24 06:26 08/14/24 06:26 08/14/24 06:21 08/14/24 06:21 08/14/24 06:19 08/14/24 06:19 08/14/24 06:16 08/14/24 06:16 08/14/24 06:11 08/14/24 06:11 08/14/24 06:06 08/14/24 06:06 08/14/24 06:04 08/14/24 06:04 08/14/24 06:01 08/14/24 06:01 08/14/24 06:00 08/14/24 05:56 08/14/24 05:56 08/14/24 05:51 08/14/24 05:51 08/14/24 05:49 08/14/24 05:49 08/14/24 05:46 08/14/24 05:46 08/14/24 05:45 08/14/24 05:41 08/14/24 05:41 08/14/24 05:36 08/14/24 05:36 08/14/24 05:34 08/14/24 05:34 08/14/24 05:31 08/14/24 05:31 08/14/24 05:30 08/14/24 05:26 08/14/24 05:26 08/14/24 05:21 08/14/24 05:21 08/14/24 05:18 08/14/24 05:18 08/14/24 05:16 08/14/24 05:16 08/14/24 05:15 08/14/24 05:11 08/14/24 05:11 08/14/24 03:05 08/14/24 03:00 Room Air 08/14/24 02:50 08/14/24 02:04 08/14/24 02:00 08/14/24 01:59 08/14/24 01:54 08/14/24 01:50 08/14/24 01:49 08/14/24 01:44 08/14/24 01:39 08/14/24 01:34 08/14/24 01:30 08/14/24 01:29 08/14/24 01:24 08/14/24 01:19 08/14/24 01:14 08/14/24 01:09 08/14/24 01:04 08/14/24 01:00 08/14/24 01:00 08/14/24 00:59 08/14/24 00:54 08/14/24 00:50 08/14/24 00:49 08/14/24 00:44 08/14/24 00:40 08/14/24 00:39 08/14/24 00:34 08/14/24 00:30 08/14/24 00:29 08/14/24 00:24 08/14/24 00:20 08/14/24 00:20 08/14/24 00:19 08/14/24 00:14 08/14/24 00:10 08/14/24 00:09 08/14/24 00:04 08/14/24 00:00 08/13/24 23:59 08/13/24 22:48 08/13/24 22:43 08/13/24 22:38 08/13/24 22:33 08/13/24 22:29 08/13/24 22:28 08/13/24 22:23 08/13/24 22:18 08/13/24 22:14 08/13/24 22:13 08/13/24 22:08 08/13/24 22:03 08/13/24 21:59 08/13/24 21:58 08/13/24 21:53 08/13/24 21:48 08/13/24 21:44 08/13/24 21:43 08/13/24 21:38 08/13/24 21:33 08/13/24 21:30 08/13/24 21:28 PG Care Time/CCT Total # of Minutes Spent Total Time Spent with Patient: Total time spent is greater than 50% in coordination of care (as documented) at patient's floor/unit and/or counseling patient: Coding Level of Care Code None Diagnoses Severe preeclampsia O14.10 S/P section Z98.891 PPH ( hemorrhage) O72.1
[2024-08-14] MEDS: MAGNESIUM SULFATE / WTR 40 GM/1,000 ML BAG IV SCH (09:34)
[2024-08-14] MEDS: SIMETHICONE 80 MG CHEW PO SCH (09:57)
[2024-08-14] MEDS: PRENATAL VITAMIN 1 TAB PO SCH (09:57)
[2024-08-14] MEDS: MAGNESIUM SULFATE 40GM / WTR 1,000 ML BAG IV ONE (09:57)
[2024-08-14] MEDS: DOCUSATE SODIUM 100 MG CAP PO SCH (09:57)
[2024-08-14] MEDS: FERROUS SULFATE 325 MG TAB PO SCH (09:57)
[2024-08-14 13:13] LABS: Albumin Globulin Ratio 0.8 (0.9-2); Albumin Level 1.8 gm/dl (3.4-5.0); BUN Creatinine Ratio 15.8 (10-20); Bilirubin Direct 0.4 mg/dl (0-0.2); Bilirubin,Total 0.8 mg/dl (0.2-1.0); Calcium 7.2 mg/dl (8.6-10.3); Creatinine Clr Calc Pharmacy 85.7 ml/min; Globulin 2.3 gm/dl (2.5-4.0); Potassium 4.6 mmol/L (3.5-5.1); Total Protein 4.1 gm/dl (6.0-8.3)
[2024-08-14] MEDS ORDERED: diphenhydrAMINE 50 MG/ML VIAL IV PRN (17:37)
[2024-08-14] MEDS ORDERED: ONDANSETRON INJ 2 MG/ML 2 ML VIAL IV PRN (17:37)
[2024-08-14] MEDS ORDERED: diphenhydrAMINE Capsule 25 MG CAP PO PRN (17:37)
[2024-08-14] MEDS ORDERED: HYDROmorphone INJ 0.5 MG/0.5 ML SYR IV PRN (17:37)
[2024-08-14] MEDS ORDERED: PROMETHAZINE 12.5 MG/50.5 ML BAG IV PRN (17:37)
[2024-08-14] MEDS: bisacodyL 5 MG TABEC PO SCH (21:47)
[2024-08-14] MEDS ORDERED: KETOROLAC 30 MG/ML VIAL IV PRN (23:56)
[2024-08-15] MEDS: IBUPROFEN 600 MG TAB PO SCH (00:10)
[2024-08-15 06:01] LABS: Hematocrit (blood only) 23.6 % (37.0-47.0); Hemoglobin 7.8 g/dl (12.0-16.0); Mean Corpuscular Hemoglobin 28.2 pg (25.0-34.0); Mean Corpuscular Hgb Conc 33.1 g/dL (32.0-36.0); Mean Corpuscular Volume 85.2 fL (80.0-100.0); Mean Platelet Volume 10.9 fL (9.4-12.4); Platelet Count 193 K/uL (130-400); RDW Standard Deviation 45.7 fL (36.4-46.3); Red Blood Count 2.77 M/uL (4.20-5.40); White Blood Count 9.72 K/ul (4.8-10.8)
[2024-08-15 06:23] LABS: Albumin Globulin Ratio 0.8 (0.9-2); Albumin Level 1.8 gm/dl (3.4-5.0); BUN Creatinine Ratio 13.5 (10-20); Bilirubin Direct 0.1 mg/dl (0-0.2); Bilirubin,Total 0.3 mg/dl (0.2-1.0); Calcium 6.7 mg/dl (8.6-10.3); Globulin 2.3 gm/dl (2.5-4.0); Potassium 4.8 mmol/L (3.5-5.1); Total Protein 4.1 gm/dl (6.0-8.3)
--- NOTE | 2024-08-15 07:45 | Obstetrical Progress Note ---
Date of Service August 15, 2024 Assessment & Plan (1) S/P section: (2) PPH ( hemorrhage): (3) Severe preeclampsia: Plan doing well this am. good urine output. bps have been better. no complaints. will plan dc mag at 915am and remove espinoza and transfer to floor. discussed pain mgmt. labs noted. Subjective Voiding: espinoza catheter in place Passing Gas:: Yes Diet Tolerance:: regular diet Lochia:: Small Feeding Type:: breast feeding doing well. feels sore with moving, pain meds help. no mooney or visual change. no cp or sob. Constitutional: + as per Subjective / HPI Physical Exam Constitutional WD/WN, vitals as above Respiratory normal respiratory effort, lungs clear to auscultation Cardiovascular Rate/Rhythm: regular rate and regular rhythm Gastrointestinal (Abdomen) Inspection/Auscultation: abdomen normal to inspection and + abdominal surgical incision (c/d/i) Percussion/Palpation: abdomen soft Fundus firm 2cm down Musculoskeletal nt calves +2 edema Neurologic grossly normal Psychiatric A+Ox3, euthymic affect Results & Data Vital Signs (Past 12 Hours) Vital Signs Temp Pulse Resp BP Pulse Ox 08/15/24 07:36 77 113/71 99 08/15/24 07:31 87 96 08/15/24 07:26 88 97 08/15/24 07:21 87 96 08/15/24 07:16 87 96 08/15/24 07:11 87 96 08/15/24 07:08 83 110/66 08/15/24 07:06 85 97 08/15/24 07:01 87 96 08/15/24 06:57 88 94 08/15/24 06:56 81 95 08/15/24 06:51 82 96 08/15/24 06:46 83 97 08/15/24 06:41 98 H 98 08/15/24 06:36 85 97 08/15/24 06:33 18 08/15/24 06:31 88 98 08/15/24 06:26 84 99 08/15/24 06:21 85 97 08/15/24 06:16 90 97 08/15/24 06:11 92 H 97 08/15/24 06:08 94 H 109/59 L 08/15/24 06:06 99 H 96 08/15/24 06:01 88 95 08/15/24 05:56 89 96 08/15/24 05:51 88 95 08/15/24 05:46 89 95 08/15/24 05:41 90 96 08/15/24 05:36 90 96 08/15/24 05:31 90 96 08/15/24 05:26 87 95 08/15/24 05:21 88 102/62 96 08/15/24 05:16 87 95 08/15/24 05:11 86 96 08/15/24 05:06 90 96 08/15/24 05:01 99 H 96 08/15/24 05:00 16 08/15/24 04:56 94 H 97 08/15/24 04:51 93 H 97 08/15/24 04:46 102 H 95 08/15/24 04:41 92 H 96 08/15/24 04:36 90 95 08/15/24 04:31 89 97 08/15/24 04:26 96 H 98 08/15/24 04:21 91 H 95 08/15/24 04:16 84 94 08/15/24 04:15 84 94 08/15/24 04:11 84 98 08/15/24 04:08 82 123/64 08/15/24 04:06 84 98 08/15/24 04:01 98.8 F 20 08/15/24 04:01 89 97 08/15/24 04:00 20 08/15/24 03:56 89 97 08/15/24 03:51 89 96 08/15/24 03:46 93 H 96 08/15/24 03:41 98 H 95 08/15/24 03:36 91 H 98 08/15/24 03:31 87 96 08/15/24 03:26 97 08/15/24 03:26 89 08/15/24 03:26 83 94 08/15/24 03:21 83 96 08/15/24 03:17 91 H 93 08/15/24 03:16 88 97 08/15/24 03:11 86 97 08/15/24 03:08 89 124/83 08/15/24 03:06 85 98 08/15/24 03:01 90 97 08/15/24 03:00 18 08/15/24 02:56 85 96 08/15/24 02:51 82 98 08/15/24 02:46 88 97 08/15/24 02:41 89 97 08/15/24 02:36 85 97 08/15/24 02:31 90 97 08/15/24 02:26 95 H 98 08/15/24 02:21 91 H 97 08/15/24 02:16 93 H 97 08/15/24 02:11 92 H 97 08/15/24 02:08 101 H 113/70 08/15/24 02:06 101 H 98 08/15/24 02:01 92 H 97 08/15/24 02:00 16 08/15/24 01:59 96 H 93 08/15/24 01:56 92 H 95 08/15/24 01:51 93 H 95 08/15/24 01:46 91 H 95 08/15/24 01:41 92 H 95 08/15/24 01:36 92 H 95 08/15/24 01:31 91 H 95 08/15/24 01:26 90 95 08/15/24 01:21 85 95 08/15/24 01:16 86 95 08/15/24 01:11 86 96 08/15/24 01:09 83 94 08/15/24 01:08 85 114/67 08/15/24 01:07 16 08/15/24 01:06 90 96 08/15/24 01:03 88 94 08/15/24 01:01 84 95 08/15/24 00:56 92 H 96 08/15/24 00:51 96 H 96 08/15/24 00:46 88 95 08/15/24 00:41 85 96 08/15/24 00:36 81 96 08/15/24 00:31 82 96 08/15/24 00:26 81 96 08/15/24 00:21 78 96 08/15/24 00:16 80 95 08/15/24 00:13 94 H 93 08/15/24 00:11 82 99 08/15/24 00:08 86 125/74 08/15/24 00:06 83 98 08/15/24 00:01 77 99 08/15/24 00:00 18 08/14/24 23:56 100 08/14/24 23:56 78 08/14/24 23:51 100 08/14/24 23:51 84 08/14/24 23:51 93 08/14/24 23:51 86 08/14/24 23:46 100 08/14/24 23:46 93 H 08/14/24 23:41 98 08/14/24 23:41 85 08/14/24 23:36 99 08/14/24 23:36 84 08/14/24 23:31 98 08/14/24 23:31 90 08/14/24 23:26 97 08/14/24 23:26 86 08/14/24 23:21 98 08/14/24 23:21 81 08/14/24 23:16 98 08/14/24 23:16 82 08/14/24 23:11 100 08/14/24 23:11 81 08/14/24 23:08 83 08/14/24 23:08 108/72 08/14/24 23:06 98 08/14/24 23:06 92 H 08/14/24 23:05 98.6 F 20 08/14/24 23:05 20 08/14/24 23:01 96 08/14/24 23:01 85 08/14/24 22:56 96 08/14/24 22:56 82 08/14/24 22:51 96 08/14/24 22:51 83 08/14/24 22:46 97 08/14/24 22:46 81 08/14/24 22:41 96 08/14/24 22:41 80 08/14/24 22:36 96 08/14/24 22:36 81 08/14/24 22:31 97 08/14/24 22:31 80 08/14/24 22:26 96 08/14/24 22:26 78 08/14/24 22:21 96 08/14/24 22:21 77 08/14/24 22:16 96 08/14/24 22:16 77 08/14/24 22:11 95 08/14/24 22:11 73 08/14/24 22:08 74 08/14/24 22:08 130/73 08/14/24 22:06 99 08/14/24 22:06 81 08/14/24 22:01 96 08/14/24 22:01 75 08/14/24 22:00 18 08/14/24 21:56 100 08/14/24 21:56 80 08/14/24 21:51 98 08/14/24 21:51 84 08/14/24 21:46 100 08/14/24 21:46 75 08/14/24 21:41 99 08/14/24 21:41 78 08/14/24 21:36 100 08/14/24 21:36 79 08/14/24 21:31 99 08/14/24 21:31 81 08/14/24 21:26 99 08/14/24 21:26 84 08/14/24 21:21 99 08/14/24 21:21 81 08/14/24 21:16 99 08/14/24 21:16 79 08/14/24 21:11 97 08/14/24 21:11 80 08/14/24 21:08 80 08/14/24 21:08 120/78 08/14/24 21:06 100 08/14/24 21:06 87 08/14/24 21:01 98 08/14/24 21:01 85 08/14/24 21:00 16 08/14/24 20:56 97 08/14/24 20:56 78 08/14/24 20:51 99 08/14/24 20:51 79 08/14/24 20:46 97 08/14/24 20:46 86 08/14/24 20:41 97 08/14/24 20:41 88 08/14/24 20:36 99 08/14/24 20:36 89 08/14/24 20:31 97 08/14/24 20:31 86 08/14/24 20:26 95 08/14/24 20:26 81 08/14/24 20:21 96 08/14/24 20:21 77 08/14/24 20:16 96 08/14/24 20:16 75 08/14/24 20:11 96 08/14/24 20:11 74 08/14/24 20:08 74 08/14/24 20:08 109/68 08/14/24 20:06 95 08/14/24 20:06 76 08/14/24 20:05 16 08/14/24 20:03 94 08/14/24 20:03 72 08/14/24 20:01 99 08/14/24 20:01 80 08/14/24 19:56 95 08/14/24 19:56 74 08/14/24 19:51 95 08/14/24 19:51 91 H 08/14/24 19:46 96 08/14/24 19:46 76
[2024-08-15] MEDS: oxyCODONE HCL IR 5 MG TAB (IMMEDIATE RELEASE) PO PRN (09:40)
[2024-08-15] MEDS ORDERED: Nursing to Pharmacy Communication SCH (14:00)
[2024-08-15] MEDS ORDERED: bisacodyL 10 MG SUPP PR PRN (23:56)
[2024-08-16] MEDS: IBUPROFEN 600 MG TAB PO PRN (00:02)
[2024-08-16] MEDS: ACETAMINOPHEN 325 MG TAB PO PRN (03:41)
--- NOTE | 2024-08-16 09:04 | Obstetrical Progress Note ---
Date of Service August 16, 2024 Postoperative day #2-09/10 from for twins with hemorrhage she is doing well she feels somewhat lightheaded her hemoglobin is 7.8 she is ambulating her pain is well-controlled Assessment & Plan (1) PPH ( hemorrhage): Continue current care she is not quite ready for discharge as she is somewhat lightheaded continue to work on ambulation will monitor her blood pressures as well Physical Exam Constitutional WD/WN, vitals as above well developed and well nourished Respiratory normal respiratory effort, lungs clear to auscultation normal respiratory effort Cardiovascular RRR, no murmur, no edema Gastrointestinal (Abdomen) normal bowel sounds, soft, nontender, no hepatosplenomegaly Results & Data Vital Signs (Past 12 Hours) Vital Signs Temp Pulse Resp BP Pulse Ox O2 Del Method 08/16/24 03:40 97.7 F 66 16 155/90 H 97 Room Air 08/16/24 00:10 97.7 F 67 16 157/90 H Room Air
[2024-08-17] MEDS: NIFEdipine 10 MG CAP PO STA (06:49)
--- NOTE | 2024-08-17 06:51 | Obstetrical Progress Note ---
Date of Service August 17, 2024 Assessment & Plan (1) PPH ( hemorrhage): Her blood pressures were ideal however with over the last 48 hours they have trended higher I will give an acute dose of nifedipine now and then extended release nifedipine will need to stay today to monitor blood pressures does not meet criteria for severe at this stage but will give time for the blood pressures to improve she is also anemic discussed transfusion however she prefers not to and I think her numbers are reasonable enough that she can avoid this Subjective Ambulation: ambulating normally Voiding: no voiding problems Passing Gas:: Yes Diet Tolerance:: regular diet She still feels somewhat weak her blood pressures also been running higher although she has no headache Physical Exam Constitutional WD/WN, vitals as above well developed and well nourished Respiratory normal respiratory effort, lungs clear to auscultation normal respiratory effort Cardiovascular RRR, no murmur, no edema Gastrointestinal (Abdomen) normal bowel sounds, soft, nontender, no hepatosplenomegaly Results & Data Vital Signs (Past 12 Hours) Vital Signs Temp Pulse Resp BP Pulse Ox O2 Del Method 08/17/24 04:00 99.0 F 86 16 153/89 H 98 Room Air 08/17/24 00:10 98.4 F 76 16 150/82 H 97 Room Air 08/16/24 20:00 98.2 F 79 18 158/90 H 97 Room Air
[2024-08-17] MEDS: MAGNESIUM HYDROXIDE SUSP 30 ML UDC PO PRN (08:31)
[2024-08-17] MEDS: NIFEdipine EXTENDED REL 30 MG TABCR PO SCH (08:45)
[2024-08-17] MEDS: METOCLOPRAMIDE HCL 5 MG TABLET PO PRN (12:44)
[2024-08-17 12:47] LABS: Hematocrit (blood only) 23.8 % (37.0-47.0); Hemoglobin 7.8 g/dl (12.0-16.0); Mean Corpuscular Hemoglobin 28.6 pg (25.0-34.0); Mean Corpuscular Hgb Conc 32.8 g/dL (32.0-36.0); Mean Corpuscular Volume 87.2 fL (80.0-100.0); Platelet Count 268 K/uL (130-400); RDW Coefficient of Variation 14.9 % (11.5-14.5); RDW Standard Deviation 47.3 fL (36.4-46.3); Red Blood Count 2.73 M/uL (4.20-5.40); White Blood Count 7.33 K/ul (4.8-10.8)
[2024-08-17] MEDS ORDERED: SODIUM CHLORIDE 0.9% 50 ML IV PRN (17:43)
[2024-08-17] MEDS ORDERED: SODIUM CHLORIDE 0.9% 100 ML IV PRN (17:43)
--- NOTE | 2024-08-17 18:05 | Communication Note ---
Date of Service: August 17, 2024 Late entry due to pt care. Pt had noted some lightheadedness with standing earlier, hgb/ stable. Had mild BERGER that started after first dose of nifedipine and suspected to be r/t BP. Discussed blood transfusion given suspected symptomatic anemia but pt declined. Just called by nursing that pt again went to bathroom and felt lightheaded again, fatigued. Notes BERGER but has had just sips of water today, normal BP so do not think PIH related. She does desire to proceed with transfusion now. Consent reviewed and signed, will start with unit and see how she feels
--- NOTE | 2024-08-18 07:25 | Obstetrical Progress Note ---
Date of Service August 18, 2024 Assessment & Plan (1) PPH ( hemorrhage): (2) Severe preeclampsia: (3) Encounter for care and examination after delivery: Plan 34 yo POD5 s/p pCS for PET w/ SF c/b PPH -nifedipine xl 30 started yesterday, bps primarily 140s. I think ok for dc and have close f/u th or fri for bp check -feeling much better after additional unit last evening, BERGER almost completely gone -will get duplex of legs, notes tenderness bilaterally. Swelling still present from prior to delivery however tenderness is quite noticeable. If neg, still ok for dc Subjective Ambulation: ambulating normally Voiding: no voiding problems Passing Gas:: Yes Diet Tolerance:: regular diet Lochia:: Small Pain well managed with medication Feeling much better after 1u prbc last evening, denies lightheadedness/dizziness and has more energy. BERGER almost gone Review of Systems Denies fevers, chills, n/v, BERGER, CP, SOB Physical Exam Constitutional WD/WN, vitals as above no acute distress Respiratory normal respiratory effort, lungs clear to auscultation Cardiovascular RRR, no murmur, no edema Gastrointestinal (Abdomen) Inspection/Auscultation: + abdominal surgical scar (c/d/i) Percussion/Palpation: abdomen soft; abdomen nontender fundus firm at umbilicus and NT Musculoskeletal BLE symmetric, TTP bilaterally. Has had scds on so hard to tell if clearly erythematous Results & Data Vital Signs (Past 12 Hours) Vital Signs Temp Pulse Pulse Resp BP BP Pulse Ox 08/18/24 04:00 99.1 F 73 16 149/96 H 97 08/18/24 00:00 99.1 F 72 16 152/88 H 98 08/17/24 21:57 97.5 F L 74 16 144/78 H 98 08/17/24 21:30 98.8 F 72 16 156/89 H 98 08/17/24 20:57 99.3 F 79 16 144/99 H 99 08/17/24 20:27 98.8 F 84 16 149/88 H 98 08/17/24 20:12 99.0 F 74 16 147/84 H 98 08/17/24 19:48 99.3 F 83 16 148/84 H 99 O2 Del Method 08/18/24 04:00 Room Air 08/18/24 00:00 Room Air 08/17/24 21:57 08/17/24 21:30 08/17/24 20:57 08/17/24 20:27 08/17/24 20:12 08/17/24 19:48
[2024-08-18 08:47] VITALS: O2SAT 98
--- NOTE | 2024-08-18 10:18 | Ultrasound Report ---
BILATERAL LOWER EXTREMITY VENOUS DOPPLER HISTORY: Acute pain and swelling of the lower legs r/o DVT, POD5 s/p cs COMPARISON STUDY: 07/28/2024 FINDINGS: Subcutaneous edema. There is normal compressibility, flow, and augmentation within the bila teral lower extremity deep venous systems. IMPRESSION: No DVT within the right or left lower extremity. ACT 112: Negative or not required by law. Electronically signed by: Marcelo Ferguson M.D. 08/18/2024 10:17 AM
[2024-08-18 17:10] VITALS: BP 150/91; PULSE 79; RESP 18; TEMP 99
--- NOTE | 2024-08-19 14:17 | Coding Query ---
ANEMIA To promote full compliance with coding requirements relating to patient care, physician participation is requested in all cases of meat team member uncertainty. Please assist us with the question(s) below: Coding Question(s): The record reflects the following clinical findings:08/17 NOTE mentioned pt was transfused 1UPC. Intraoperative also received 2 UPC for PPH. Please check below, if applicable, the diagnosis that you were treating. Thanks for your help! Doug Springer, [facility] If these findings are indicative of anemia, please specify the known or suspected type by placing an "X" within the parenthesis (x). If other, please document type. Examples are: ( ) Acute blood loss anemia ( ) Acute Postoperative blood loss anemia ( ) Acute postoperative anemia due to dilutional fluids ( ) Chronic blood loss anemia ( ) Anemia of chronic disease ( ) Aplastic anemia ( ) Anemia due to renal disease ( ) Anemia in neoplastic disease ( ) Iron deficient anemia ( ) Anemia, unspecified or other ( ) Other: (please specify) MTDD
== END 2024-08-18 17:45 | disposition home or self-care (01) | DRG 788 ==
LOC: 4S1 22:12 → 4E2 08-14 03:03 → 4S1 08-14 05:26 → 4E2 08-15 10:57
PROC: M.EUALD (2024-08-14 03:50)